=== PATIENT | female | born 1975 | race Caucasian/White ===

== ENCOUNTER → 2020-08-04 09:43 | Outpatient (BNVA) | payer MEDICAID, SELFPAY | PROVIDERS: Family Provider Family Medicine; Visit Provider Emergency Medicine | DX: M25.511 Pain in right shoulder (principal) | CPT/HCPCS: 73030 ==

== ENCOUNTER 2021-04-14 06:39 | Outpatient (CLI) | payer MEDICAID, SELFPAY ==
--- NOTE | 2021-04-14 07:15 | USCV_ITS ---
Adams Olivia Age: 45 Gender: F : 1975 Exam Date: 04/14/2021 07:29 Ordering Phys: Alida Garza MD ([email or web address]) Technologist: Daisha Curtis [place] [facility] [place]: Shortness of breath BP: / HR: Rhythm: Sinus Technical Quality: Adequate MEASUREMENTS (Male / Female) Normal Values 2D ECHO LV Diastolic Diameter PLAX 3.4 cm 4.2 - 5.9 / 3.9 - 5.3 cm LV Systolic Diameter PLAX 2.5 cm LV Chamber Size 2.6 cm IVS Diastolic Thickness 1.0 cm 0.6 - 1.0 / 0.6 - 0.9 cm IVS Systolic Thickness 1.4 cm LVPW Diastolic Thickness 1.1 cm 0.6 - 1.0 / 0.6 - 0.9 cm LVPW Systolic Thickness 1.3 cm RV Chamber Size 2.6 cm LVOT Diameter 2.0 cm LV Ejection Fraction 2D Teich 54.6 % LV Ejection Fraction MOD 2C 54.2 % LV Ejection Fraction 2C AL 57.0 % LA Diameter 3.2 cm LA Width 3.0 cm LA Height 3.4 cm RA Width 3.1 cm RA Height 2.1 cm Aorta at Sinotubular Diameter 2.6 cm M-MODE LV Diastolic Diameter MM 3.1 cm 4.2 - 5.9 / 3.9 - 5.3 cm LV Systolic Diameter MM 1.9 cm LV Ejection Fraction MM Teich 69.2 % IVS Diastolic Thickness MM 1.3 cm 0.6 - 1.0 / 0.6 - 0.9 cm IVS Systolic Thickness MM 1.1 cm LVPW Diastolic Thickness MM 1.0 cm 0.6 - 1.0 / 0.6 - 0.9 cm LVPW Systolic Thickness MM 1.4 cm RV Diastolic Diameter MM 1.1 cm Aortic Annulus Diameter 2.8 cm LA Ao Ratio MM 1.2 MV E Point Septal Separation 0.3 cm DOPPLER AV Peak Velocity 104.0 cm/s LVOT Peak Velocity 110.0 cm/s AV Area Cont Eq vti 3.2 cm squared AV Area Cont Eq pk 3.5 cm squared MV Area PHT 4.0 cm squared Mitral E to A Ratio 1.6 MV E' Velocity 58.0 cm/s Mitral E to MV E' Ratio 8.3 Mitral E to LV E' Lateral Ratio 8.5 Mitral E to LV E' Septal Ratio 8.2 TR Peak Velocity 155.0 cm/s TR Peak Gradient 9.6 mmHg TR Mean Velocity 116.8 cm/s TR Mean Gradient 6.2 mmHg TR Velocity Time Integral 52.8 cm Right Atrial Pressure 3.0 mmHg Pulmonary Artery Systolic Pressu 12.6 mmHg PV Peak Velocity 40.0 cm/s RV Acceleration Time 0.2 s RV Ejection Time 0.4 s RV AcT/ET 0.5 FINDINGS Left Ventricle Normal left ventricular size, systolic function and wall thickness, with no regional wall motion abnormalities. Left ventricular ejection fraction is estimated at 65 %. Normal diastolic function. Right Ventricle Normal right ventricular size and systolic function. Right ventricular systolic pressure 12.6 mmHg. Right Atrium Normal right atrial size. Left Atrium Normal left atrial size. Mitral Valve Structurally normal mitral valve. No mitral valve stenosis. Trace mitral valve regurgitation. Aortic Valve Structurally normal trileaflet aortic valve. No aortic valve stenosis. No aortic valve regurgitation. Tricuspid Valve Structurally normal tricuspid valve. No tricuspid valve stenosis. Trace tricuspid valve regurgitation. Pulmonic Valve Pulmonic valve not well visualized. Trace pulmonary valve regurgitation. Pericardium No pericardial effusion. Aorta Normal size aortic root. Normal sized inferior vena cava. CONCLUSIONS 1. Normal left ventricular size, systolic function and wall thickness, with no regional wall motion abnormalities. Left ventricular ejection fraction is estimated at 65 %. Normal diastolic function. 2. Normal right ventricular size and systolic function. 3. No significant valvular abnormality. 4. Normal pulmonary artery pressure. 5. No prior similar studies to compare. Alida Garza MD (Electronically Signed) Final Date: 15 Apr 2021 20:59 S
[2021-04-14] MEDS: perflutren protein-a microsphr 0.22 mg/mL SDV 3 mL IV (07:56)
== END 2021-04-14 06:40 | disposition home or self-care (01) ==
PROVIDERS: PCP Physician Assistant Medical; Visit Provider Internal Medicine Cardiovascular Disease
DX: I10 Essential (primary) hypertension (principal); R06.02 Shortness of breath
CPT/HCPCS: C8929; Q9956

== ENCOUNTER 2021-07-10 13:21 | Emergency (ER) | payer MEDICAID, SELFPAY ==
[2021-07-10 13:31] VITALS: BP 133/81; PULSE 56; RESP 19; TEMP 36.7; O2SAT 100
--- NOTE | 2021-07-10 13:47 | W.ED.FEMALGU ---
HPI - Female Genitourinary General: Chief complaint: Urogenital-Female Stated complaint: R FLANK PAIN, BLACKED OUT EARLIER Time Seen by Provider: 07/10/21 13:46 History of Present Illness: HPI Narrative: Mr. Adams is a 45-year-old lady with significant past medical story of renal artery stenosis who presents to the emergency department due to flank pain and syncope. She reports her symptoms started subacutely 2 or 3 days ago. She initially noted episodic cramping sharp left flank pain with mild radiation. She denies associated dysuria or hematuria. She has noted associated weight gain and decreased urine output. Today she had sudden onset severe pain in her back that caused her to syncopized. She was sitting in a car and did not fall or hit her head. She has associated generalized malaise, diarrhea, nausea without vomiting. Overall the intensity of symptoms has worsened. The intensity is now severe. She denies similar episodes in the past. Prior abdominal surgeries include hysterectomy with single oophorectomy. No other specific changes health, exacerbating, or alleviating factors identified. Review of Systems General: Reports: 10 or more systems reviewed and unremarkable except in HPI and below Narrative: CONSTITUTIONAL: denies fever, fatigue, weakness EYES - denies pain, denies loss of vision EARS - denies ear issues. NOSE - denies congestion or rhinorrhea. CARDIOVASCULAR - denies chest pain and palpitations RESPIRATORY - denies shortness of breath and cough GASTROINTESTINAL -see HPI GENITOURINARY - denies dysuria or urinary frequency. Subjectively decreased urine output MUSCULOSKELETAL- denies deformity or pain SKIN - denies rashes or new changed skin lesions NEUROLOGIC - denies focal weakness or sensory changes. Syncope as noted in HPI HEMATOLOGIC/LYMPHATIC - denies easy bruising or lymphadenopathy. [facility] PFSH: Medical History History of shingles HTN (hypertension) Migraine headache Surgical History H/O section H/O knee surgery H/O shoulder surgery H/O: hysterectomy S/P cholecystectomy Family History Grandfather Diabetes Grandmother Diabetes Mother Hypoglycemia Other CHF (congestive heart failure) COPD (chronic obstructive pulmonary disease) Hypertension Denies family history of Cancer Social History Smoking and tobacco status: former smoker Quit status (tobacco): has quit using tobacco Year quit tobacco: 2019 Alcohol intake: never History of recent travel: No Current gender identity: Female Female Reproductive History: Spontaneous abortions: No Physical Exam Narrative: EXAM NARRATIVE: GENERAL/CONSTITUTIONAL - well-appearing. Intermittent uncomfortable appearance due to pain Eyes - PERRL, no conjunctival injection ENMT - Atraumatic external nose and ears. Moist mucous membranes NECK - supple. trachea midline CARDIOVASCULAR - regular rate and rhythm. RESPIRATORY -clear to auscultation bilaterally. No retractions or accessory muscle use. ABDOMEN/GI -generalized tenderness to palpation which is mild to moderate. There is tenderness in the epigastric region MSK - Extremities without obvious deformity or tenderness to palpation SKIN - Warm, Dry NEURO - alert and appropriately oriented. strength and sensation intact. Moves all extremities equally. No cranial nerve deficits as examined PSYCH - Appropriate mood and affect Course ED course: - Patient was seen and evaluated by me at bedside - Patient placed on cardiac monitors, IV access obtained - Initial evaluation notable for nontoxic appearance. Pain. No peritonitis on abdominal exam -Symptom treatment ordered - Labs notable for elevated lipase, no evidence of urinary tract infection - Imaging notable for no specific abnormality to explain the patient's symptoms -Patient denies history of alcohol abuse or recent alcohol use - Upon serial reexamination after treatment the patient was improved with symptomatic cares - Based on patient history, evaluation, labs, and imaging as interpreted the most likely cause of the patient's condition is unclear, this is a somewhat atypical presentation for pancreatitis however referred pain could explain the patient's symptoms. I offered admission for symptomatic management. The patient declined admission and wishes trial of symptom control at home. - The results of ED evaluation were discussed with the patient including prescriptions and/or symptomatic cares including appropriate and responsible use, followup plan, and return precautions. The patient verbalized understanding and felt safe for discharge. - Patient discharged in satisfactory condition. Vital Signs: Vital signs: Vital Signs Temperature 98.0 F 07/10/21 13:31 Pulse Rate 82 07/10/21 18:33 Respiratory Rate 16 07/10/21 18:33 Blood Pressure 131/88 07/10/21 18:33 Pulse Oximetry 97 07/10/21 18:33 MDM - Female Medical Records: Attestation: I reviewed the patient's medical records. Lab Data: Attestation: I reviewed the patient's lab results. Labs: Lab Results 07/10/21 07/10/21 07/10/21 Range/Units 14:23 14:23 14:23 WBC 8.8 (4.0-10.0) 10^3/ uL RBC 4.01 L (4.1-5.3) 10^6/u L Hgb 12.5 (11.5-15.3) g/dL Hct 38.5 (37.0-47.0) % MCV 96.0 (81-99) fl MCH 31.2 (28.0-34.0) pg MCHC 32.5 (30.0-36.0) g/dL RDW 12.9 (12.1-15.1) % Plt Count 312 (130-400) 10^3/c mm MPV 11.0 H (7.4-10.4) fL Neut % (Auto) 63.8 % Lymph % (Auto) 26.1 % Bennett % (Auto) 5.3 % Eos % (Auto) 3.6 % Baso % (Auto) 0.9 % Neut # (Auto) 5.60 (1.8-7.7) 10^3/u L Lymph # (Auto) 2.3 (0.8-4.8) 10^3/u L Bennett # (Auto) 0.5 (0.2-0.9) 10^3/u L Eos # (Auto) 0.3 (0.0-0.8) 10^3/u L Baso # (Auto) 0.1 (0.0-0.1) 10^3/u L Nucleated RBC % (a uto) 0 % Nucleated RBCs # 0.0 /100WBC Sodium 131 L (136-145) mmol/L Potassium 4.2 (3.5-5.1) mmol/L Chloride 97 L (98-107) mmol/L Carbon Dioxide 22 (22-29) mmol/L Anion Gap 16.2 (5-19) BUN 11 (6-20) mg/dL Creatinine 0.6 (0.5-0.9) mg/dL GFR Calculation 107.6 (90-130) mL/min Glucose 82 (65-115) mg/dL Calculated Osmolal ity 270 L (285-295) mOsm/k g Lactate 0.7 (0.5-2.2) mmol/L Calcium 9.0 (8.5-10.5) mg/dL Total Bilirubin 0.2 (0.15-1.2) mg/dL AST 38 H (0-32) U/L ALT 40 H (0-33) U/L Alkaline Phosphata se 57 (35-105) IU/L Total Protein 6.8 (6.6-8.7) g/dL Albumin 3.8 (3.5-5.2) g/dL Globulin 3.0 (1.3-4.6) g/dL Lipase 1134 H (13-60) U/L TSH 2.42 (0.27-4.20) uIU/ mL HCG, Qual (Negative) Urine Color (Yellow) Urine Appearance (CLEAR) Urine pH (5-7) Ur Specific Gravit y (1.005-1.030) Urine Protein (Negative) Urine Glucose (UA) (Normal) Urine Ketones (Negative) Urine Blood (Negative) Urine Nitrate (Negative) Urine Bilirubin (Negative) Urine Urobilinogen (Negative) mg/dL Ur Leukocyte Danielle ase (Negative) 07/10/21 07/10/21 Range/Units 14:23 14:23 WBC (4.0-10.0) 10^3/ uL RBC (4.1-5.3) 10^6/u L Hgb (11.5-15.3) g/dL Hct (37.0-47.0) % MCV (81-99) fl MCH (28.0-34.0) pg MCHC (30.0-36.0) g/dL RDW (12.1-15.1) % Plt Count (130-400) 10^3/c mm MPV (7.4-10.4) fL Neut % (Auto) % Lymph % (Auto) % Bennett % (Auto) % Eos % (Auto) % Baso % (Auto) % Neut # (Auto) (1.8-7.7) 10^3/u L Lymph # (Auto) (0.8-4.8) 10^3/u L Bennett # (Auto) (0.2-0.9) 10^3/u L Eos # (Auto) (0.0-0.8) 10^3/u L Baso # (Auto) (0.0-0.1) 10^3/u L Nucleated RBC % (a uto) % Nucleated RBCs # /100WBC Sodium (136-145) mmol/L Potassium (3.5-5.1) mmol/L Chloride (98-107) mmol/L Carbon Dioxide (22-29) mmol/L Anion Gap (5-19) BUN (6-20) mg/dL Creatinine (0.5-0.9) mg/dL GFR Calculation (90-130) mL/min Glucose (65-115) mg/dL Calculated Osmolal ity (285-295) mOsm/k g Lactate (0.5-2.2) mmol/L Calcium (8.5-10.5) mg/dL Total Bilirubin (0.15-1.2) mg/dL AST (0-32) U/L ALT (0-33) U/L Alkaline Phosphata se (35-105) IU/L Total Protein (6.6-8.7) g/dL Albumin (3.5-5.2) g/dL Globulin (1.3-4.6) g/dL Lipase (13-60) U/L TSH (0.27-4.20) uIU/ mL HCG, Qual Negative (Negative) Urine Color Yellow (Yellow) Urine Appearance Clear (CLEAR) Urine pH 6 (5-7) Ur Specific Gravit y 1.010 (1.005-1.030) Urine Protein Neg (Negative) Urine Glucose (UA) Norm (Normal) Urine Ketones Negative (Negative) Urine Blood Neg (Negative) Urine Nitrate Negative (Negative) Urine Bilirubin Neg (Negative) Urine Urobilinogen Neg (Negative) mg/dL Ur Leukocyte Danielle ase Negative (Negative) Discharge Plan Discharge Patient Disposition: Home Clinical Impression: Abdominal pain, Syncope, Elevated AST (SGOT), Elevated alanine aminotransferase (ALT) level, Elevated lipase, Acute pancreatitis Condition: Stable Prescriptions: New oxycodone 5 mg capsule 5 mg PO Q4H PRN (Reason: pain) Qty: 14 RF: 0 Zofran 4 mg tablet 4 mg PO Q8H PRN (Reason: nausea and vomiting) 5 Days RF: 0 No Action amlodipine 10 mg tablet 10 mg PO QAM RF: 0 pantoprazole [Protonix] 40 mg tablet,delayed release (DR/EC) 40 mg PO BID RF: 0 atorvastatin 40 mg tablet 40 mg PO BEDTIME RF: 0 vitamin B complex [Super B-50 Complex] Capsule 1 cap PO QAM RF: 0 cholecalciferol (vitamin D3) 125 mcg (5,000 unit) tablet 125 mcg PO QAM RF: 0 losartan 50 mg tablet 50 mg PO QAM RF: 0 Aimovig Autoinjector See Rx Instructions .ROUTE .COMPLEX RF: 0 Tylenol Extra Strength 500 mg Tablet 1,000 mg PO Q4H PRN (Reason: Pain) RF: 0 L-Glutamine 500 mg Tablet 500 mg PO QAM RF: 0 spironolactone 50 mg Tablet 50 mg PO QAM RF: 0 propranolol 80 mg tablet See Rx Instructions .ROUTE .COMPLEX RF: 0 Discharge Orders: Discharge ED (Routine); Ordered 07/10/21 Ordered By: Donaldo Kumar Referrals: Tunde Vargas [Primary Care Provider] - Discharge Diet: Clear Liquid Discharge Activity: Limit activity as instructed Patient Instructions: Pancreatitis (ED), Abdominal Pain (ED), Opioid Safety Activity Restrictions/Additional Instructions: Thank you for visiting the emergency department. You were seen and evaluated for abdominal pain and syncope, the exact cause of your symptoms is unclear. You were found to have an elevated lipase and in combination with clinical exam is consistent with pancreatitis that the cause of this is unclear. Please follow the instructions and discussions regarding care of your symptoms. Please follow-up in the next few days with your primary care provider. Please return to the emergency department for worsening of your current symptoms, intractable pain, inability to tolerate oral intake, or anything else that you are concerned about and feel needs emergency department evaluation. Coding Level of Care Code ED Special Delivery Carrier for Jen Manning
[2021-07-10] MEDS: sodium chloride 0.9% 1,000 ML 999 ML IV (14:23)
[2021-07-10] MEDS: ketorolac 30 mg/mL INJ 15 MG IVP (14:24)
[2021-07-10] MEDS: ondansetron 2 mg/ML SDV 2 mL 4 MG IVP (14:24)
[2021-07-10] MEDS: morphine 4 mg/mL SDV 1 mL IVP ×2 (14:25→16:42)
[2021-07-10 14:26] VITALS: BP 115/69; PULSE 56; RESP 16; O2SAT 99
[2021-07-10 14:36] LABS: Add Urine Microscopic? NO; Charge for UA Resulting for Rev
[2021-07-10 14:43] LABS: Basophils # 0.1 10^3/uL (0.0-0.1); Basophils % 0.9 %; Eosinophils # 0.3 10^3/uL (0.0-0.8); Eosinophils % 3.6 %; Hematocrit 38.5 % (37.0-47.0); Hemoglobin 12.5 g/dL (11.5-15.3); Lymphocytes # 2.3 10^3/uL (0.8-4.8); Lymphocytes % 26.1 %; Mean Corpuscular HGB Conc 32.5 g/dL (30.0-36.0); Mean Corpuscular Hemoglobin 31.2 pg (28.0-34.0); Monocytes # 0.5 10^3/uL (0.2-0.9); Monocytes % 5.3 %; Neutrophils % 63.8 %; Nucleated Red Blood Cells % 0 %; Platelet Count 312 10^3/cmm (130-400); Red Blood Count 4.01 10^6/uL (4.1-5.3); Red Cell Distribution Width 12.9 % (12.1-15.1); White Blood Count 8.8 10^3/uL (4.0-10.0)
[2021-07-10 15:01] LABS: Bilirubin Urine Neg (Negative); Blood Urine Neg (Negative); Glucose Urine UA Norm (Normal); HCG Qualitative Urine. Negative (Negative); Ketones Urine Negative (Negative); Leukocyte Esterase Urine Negative (Negative); Nitrate Urine Negative (Negative); Protein Urine Neg (Negative); Urine Appearance Clear (CLEAR); Urine Color Yellow (Yellow); Urobilinogen Urine Neg (Negative); pH Urine 6 (5-7)
[2021-07-10 15:07] LABS: Lactate (Lactic Acid level) 0.7 mmol/L (0.5-2.2)
[2021-07-10 15:19] VITALS: BP 126/83; PULSE 53; RESP 16; O2SAT 98
[2021-07-10 15:19] LABS: Alanine Aminotransferase 40 U/L (0-33); Albumin Level 3.8 g/dL (3.5-5.2); Alkaline Phosphatase 57 IU/L (35-105); Blood Urea Nitrogen 11 mg/dL (6-20); Carbon Dioxide 22 mmol/L (22-29); Chloride 97 mmol/L (98-107); Glomerular Filtration Rate 107.6 mL/min (90-130); Glucose 82 mg/dL (65-115); Osmolality Calculated 270 mOsm/kg (285-295); Sodium 131 mmol/L (136-145); Thyroid Stimulating Hormone 2.42 uIU/mL (0.27-4.20); Total Bilirubin 0.2 mg/dL (0.15-1.2); Total Protein 6.8 g/dL (6.6-8.7)
[2021-07-10 15:28] LABS: Anion Gap 16.2 (5-19); Aspartate Amino Transferase 38 U/L (0-32); Lipase 1134 U/L (13-60); Potassium 4.2 mmol/L (3.5-5.1)
--- NOTE | 2021-07-10 15:40 | XR_ITS ---
WS: [id number] Portable AP upright chest, 07/10/2021 Clinical Data: syncope Comparison: None. Findings: No nodules, masses or effusions are seen. The heart is normal. The pulmonary vascularity is not increased. No pneumonia or pneumothorax is seen. XR/XR chest 1V portable [id number] Impression: Negative chest.
--- NOTE | 2021-07-10 15:40 | CTR_ITS ---
PROCEDURE INFORMATION: Exam: CT Abdomen And Pelvis With Contrast Exam date and time: 07/10/2021 3:40 PM Age: 45 years old Clinical indication: Abdominal pain; Right; Prior surgery; Surgery type: Gb, hyst; Patient HX: RT flank pain x 2 days; Additional info: Syncope and abdominal pain, elevated lipase TECHNIQUE: Imaging protocol: Computed tomography of the abdomen and pelvis with contrast. Radiation optimization: All CT scans at this facility use at least one of these dose optimization techniques: automated exposure control; mA and/or kV adjustment per patient size (includes targeted exams where dose is matched to clinical indication); or iterative reconstruction. Contrast material: OMNIPAQUE 300; Contrast volume: 95 ml; Contrast route: INTRAVENOUS (IV); COMPARISON: CR XR chest 1V portable [id number] 07/10/2021 3:44 PM RADIATION DOSE METRICS: Total DLP (mGy-cm): 1371.38 FINDINGS: Liver: There is multiple nonspecific hypodense lesions scattered throughout the liver, the largest measuring 1.3 cm in the right hepatic lobe. Gallbladder and bile ducts: The gallbladder has been surgically removed. There is mild intra and extrahepatic biliary ductal dilatation, likely secondary to post cholecystectomy status. Pancreas: Normal. No ductal dilation. Spleen: Normal. No splenomegaly. Adrenal glands: Normal. No mass. Kidneys and ureters: Symmetric enhancement of the kidneys. No hydronephrosis or nephrolithiasis. There is a subcentimeter hypodense lesion in the left lower kidney, which is too small to characterize. Incidental note is made of a 3.3 cm cyst in the left ovary. Stomach and bowel: There is a few fluid-filled loops of small bowel, and scattered air-fluid levels throughout the non abnormally distended colon. No bowel obstruction or focal inflammation identified. Appendix: No evidence of appendicitis. Intraperitoneal space: Unremarkable. No free air. No significant fluid collection. Vasculature: Unremarkable. No abdominal aortic aneurysm. Lymph nodes: Unremarkable. No enlarged lymph nodes. Urinary bladder: Unremarkable as visualized. Reproductive: The uterus is surgically absent. Bones/joints: Unremarkable. No acute fracture. Soft tissues: Unremarkable. CT/CT abdomen pelvis w con* [id number] IMPRESSION: Nonspecific imaging findings, which can be seen the setting of enteritis/colitis. COMMENTS: Consistent with the [employer]'s Incidental Findings Committee white paper (J Am Huma Radiol 2018): Any incidental renal lesion less than 1 cm or classified as too small to characterize, or any incidental cystic renal lesion characterized as simple-appearing, is likely benign. No follow-up imaging is recommended for these lesions per consensus recommendations based on imaging criteria. Radiation Dose CTDIVOL = (mGy): DLP = 1371.38 (mGy-cm)
[2021-07-10] MEDS: iohexol 300 mg/mL 100 mL Btl IV (16:20)
[2021-07-10 16:45] VITALS: BP 128/74; PULSE 65; RESP 16; O2SAT 98
--- NOTE | 2021-07-10 17:41 | PC.PHAR ---
PT STATES SHE TAKES CARE OF HER OWN MEDICATIONS-PT STATES SHE FILLS HER MEDS AT [facility] IN [facility] CALLED TO VERIFY MEDS AND MG THEY ARE CLOSED-PT STATES SHE TAKES THE MEDICATIONS ENTERED NOTES ARE MADE IN THE PHARMACY COMMENTS
[2021-07-10 17:55] VITALS: BP 125/76; PULSE 60; RESP 16; O2SAT 98
[2021-07-10 18:33] VITALS: BP 131/88; PULSE 82; RESP 16; O2SAT 97
== END 2021-07-10 18:35 | disposition home or self-care (01) ==
PROVIDERS: Emergency Provider Emergency Medicine; PCP Physician Assistant Medical
DX: K85.90 Acute pancreatitis without necrosis or infection, unspecified (principal); R55 Syncope and collapse; R74.01 Elevation of levels of liver transaminase levels; R79.89 Other specified abnormal findings of blood chemistry; I10 Essential (primary) hypertension; Z87.891 Personal history of nicotine dependence
CPT/HCPCS: 71045; 74177; 80053; 81003; 81025; 83605; 83690; 84443; 85025; 96361; 96374; 96375; 96376; 99284; J1885; J2270; J2405; J7030; Q9967

== ENCOUNTER 2021-07-13 15:03 | Observation (INO) | payer MEDICAID, SELFPAY ==
[2021-07-13] VITALS (7 sets, daily range): BP systolic 114–136; BP diastolic 71–91; PULSE 58–95; RESP 16–18; TEMP 36.3–36.7; O2SAT 96–98; BMI 25.6; BMI 28.5
--- NOTE | 2021-07-13 15:43 | ED_ITS ---
Documented by User: [facility] 07/14/21 19:59 HPI - Abdominal Pain General: Chief Complaint: Abdominal Pain Stated Complaint: STOMACH/BACK PAIN WORSENING Time Seen by Provider: 07/13/21 15:15 Source: patient Mode of arrival: ambulatory Limitations: no limitations History of Present Illness: HPI narrative: Patient is a 45-year-old female who presents to ED today with continued and worsening upper abdominal pains. Patient states pain initially began approximately a week ago. She was seen at our facility 3 to 4 days ago. At that visit patient had a lipase of over 1000. She was offered admission but wanted to go home. CT scan did not show any emergent pathology. She is status post cholecystectomy. Patient states since she was discharged pain is continued to worsen and is uncontrollable with oral analgesics that were prescribed. Pain is located to her epigastric region with radiation into her back. She has having nausea without episodes of emesis. Bowel movements have been normal. She is not running fevers. She has not noticed any yellowing to the skin or eyes. Patient denies drug or alcohol use. MD elicited complaint: abdominal pain Onset (ago): day(s) Pain Consistency: constant Location: Epigastric and RUQ Severity: severe Quality: stabbing and sharp Relieving factors: nothing Associated Symptoms: Reports bloating and nausea; Denies change in stool character, chills, diarrhea, dysuria, fever(s), hematochezia, hematuria, melena and vomiting Treatments prior to arrival: prescription analgesics Related Data: Patient : No Review of Systems Const: Reports: change in appetite; Denies: fever(s), chills, body aches, fatigue or malaise ENMT: Denies: throat pain or odynophagia Card: Denies: chest pain Resp: Denies: dyspnea GI: Reports: abdominal pain, nausea and bloating; Denies: vomiting, diarrhea, rectal pain, change in stool character, hematochezia or melena : Denies: flank pain, dysuria or hematuria Musc: Reports: back pain; Denies: neck pain, extremity pain, extremity swelling, joint pain or joint swelling Skin/Breast: Denies: rash Neuro: Denies: headache(s), numbness in extremities, weakness in extremities or sensory changes PFS ED PFSH: Medical History (Updated 07/14/21 @ 17:24 by Vitor Sorensen MD) 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 GERD (gastroesophageal reflux disease) History of peptic ulcer disease History of shingles 3 times HTN (hypertension) Hyperlipidemia Migraine headache Renal artery stenosis Surgical History (Updated 07/14/21 @ 15:05 by Andreas Crawford MD) H/O section x 1 H/O knee surgery Right arthroscopy x 4 H/O shoulder surgery Right biceps tendon tear repair H/O: hysterectomy / Right oophorectomy History of colonoscopy 2019 -- normal History of esophagogastroduodenoscopy (EGD) 2019 -- ulcers S/P cholecystectomy Family History Grandfather Diabetes Grandmother Diabetes Mother Hypoglycemia Other CHF (congestive heart failure) COPD (chronic obstructive pulmonary disease) Hypertension Denies family history of Cancer Social History (Updated 07/14/21 @ 15:08 by Andreas Crawford MD) Smoking and tobacco status: former smoker Quit status (tobacco): has quit using tobacco Year quit tobacco: 2019 Former quit date comment: Quit after she was diagnosed with COVID-19 Alcohol intake: never Current gender identity: Female Female Reproductive History: Spontaneous abortions: No Physical Exam Const: COMMON NORMALS: average body habitus, patient oriented x3, no limitations, healthy appearing, alert and well nourished GENERAL APPEARANCE: cooperative and in distress (appears uncomfortable) HENMT: COMMON NORMALS: normocephalic and atraumatic HEAD & SCALP: normocephalic and atraumatic Resp: COMMON NORMALS: normal respiratory effort and clear to auscultation bilaterally AUSCULTATION: clear to auscultation bilaterally Cardio: COMMON NORMALS: regular rate and regular rhythm RATE: regular rate RHYTHM: regular rhythm GI: COMMON NORMALS: Soft to palpation, No hepatosplenomegaly present and no masses INSPECTION: Yes other (abdominal bloating) AUSCULTATION: Yes normoactive bowel sounds PALPATION: Yes Soft to palpation, Yes Tenderness to palpation present (GI) (epigastric, RUQ), Yes Guarding due to palpation present (GI) and Yes No hepatosplenomegaly present : BLADDER/KIDNEY EXAM: Yes CVA tenderness Back/Pelvis: COMMON NORMALS: thoracic and lumbar spine normal to inspection, no thoracic nor lumbar tenderness and thoraco-lumbar ROM normal GENERAL BACK: Yes CVA tenderness CVA tenderness: bilateral Extremity: COMMON NORMALS: normal to inspection Neuro: COMMON NORMALS: patient oriented x3 SENSORIUM/ORIENTATION: Yes alert Skin: COMMON NORMALS: no rashes or lesions noted GENERAL SKIN EXAM: no rashes or lesions noted Course Vital Signs: Vital signs: Vital Signs Temperature 97.9 F 07/15/21 08:00 Pulse Rate 68 07/15/21 08:00 Respiratory Rate 18 07/15/21 08:43 Blood Pressure 134/84 07/15/21 08:00 Pulse Oximetry 98 07/15/21 08:00 MDM - Abdominal Pain MDM Narrative: Medical decision making narrative: Patient here for worsening upper abdominal pains. Just 2 days ago she had a lipase of over 1100 and today her lipase is 29 which clinically is perplexing. We will repeat her lipase to verify. Care be transferred to Dr. Kumar as my shift is ending and he cared for her 2 days ago. Plan will most likely be for admission into the hospital as patient has failed outpatient treatment. Lab Data: Labs: Lab Results 07/13/21 07/13/21 07/13/21 Range/Units 16:00 16:00 16:20 WBC 7.2 (4.0-10.0) 10^3/ uL RBC 4.07 L (4.1-5.3) 10^6/u L Hgb 12.6 (11.5-15.3) g/dL Hct 37.9 (37.0-47.0) % MCV 93.1 (81-99) fl MCH 31.0 (28.0-34.0) pg MCHC 33.2 (30.0-36.0) g/dL RDW 12.1 (12.1-15.1) % Plt Count 329 (130-400) 10^3/c mm MPV 10.5 H (7.4-10.4) fL Neut % (Auto) 56.3 % Lymph % (Auto) 30.3 % George % (Auto) 8.2 % Eos % (Auto) 4.3 % Baso % (Auto) 0.6 % Neut # (Auto) 4.07 (1.8-7.7) 10^3/u L Lymph # (Auto) 2.2 (0.8-4.8) 10^3/u L George # (Auto) 0.6 (0.2-0.9) 10^3/u L Eos # (Auto) 0.3 (0.0-0.8) 10^3/u L Baso # (Auto) 0.0 (0.0-0.1) 10^3/u L Nucleated RBC % (a uto) 0 % Nucleated RBCs # 0.0 /100WBC Sodium 136 (136-145) mmol/L Potassium 4.4 (3.5-5.1) mmol/L Chloride 100 (98-107) mmol/L Carbon Dioxide 29 (22-29) mmol/L Anion Gap 11.4 (5-19) BUN 8 (6-20) mg/dL Creatinine 0.8 (0.5-0.9) mg/dL GFR Calculation 77.2 L (90-130) mL/min Glucose 85 (65-115) mg/dL Calculated Osmolal ity 280 L (285-295) mOsm/k g Calcium 9.3 (8.5-10.5) mg/dL Total Bilirubin 0.3 (0.15-1.2) mg/dL AST 32 (0-32) U/L ALT 45 H (0-33) U/L Alkaline Phosphata se 72 (35-105) IU/L Total Protein 6.9 (6.6-8.7) g/dL Albumin 4.3 (3.5-5.2) g/dL Globulin 2.6 (1.3-4.6) g/dL Lipase 29 (13-60) U/L HCG, Qual Negative (Negative) Urine Color (Yellow) Urine Appearance (CLEAR) Urine pH (5-7) Ur Specific Gravit y (1.005-1.030) Urine Protein (Negative) Urine Glucose (UA) (Normal) Urine Ketones (Negative) Urine Blood (Negative) Urine Nitrate (Negative) Urine Bilirubin (Negative) Urine Urobilinogen (Negative) mg/dL Ur Leukocyte Danielle ase (Negative) 07/13/21 07/13/21 Range/Units 16:25 18:15 WBC (4.0-10.0) 10^3/ uL RBC (4.1-5.3) 10^6/u L Hgb (11.5-15.3) g/dL Hct (37.0-47.0) % MCV (81-99) fl MCH (28.0-34.0) pg MCHC (30.0-36.0) g/dL RDW (12.1-15.1) % Plt Count (130-400) 10^3/c mm MPV (7.4-10.4) fL Neut % (Auto) % Lymph % (Auto) % George % (Auto) % Eos % (Auto) % Baso % (Auto) % Neut # (Auto) (1.8-7.7) 10^3/u L Lymph # (Auto) (0.8-4.8) 10^3/u L George # (Auto) (0.2-0.9) 10^3/u L Eos # (Auto) (0.0-0.8) 10^3/u L Baso # (Auto) (0.0-0.1) 10^3/u L Nucleated RBC % (a uto) % Nucleated RBCs # /100WBC Sodium (136-145) mmol/L Potassium (3.5-5.1) mmol/L Chloride (98-107) mmol/L Carbon Dioxide (22-29) mmol/L Anion Gap (5-19) BUN (6-20) mg/dL Creatinine (0.5-0.9) mg/dL GFR Calculation (90-130) mL/min Glucose (65-115) mg/dL Calculated Osmolal ity (285-295) mOsm/k g Calcium (8.5-10.5) mg/dL Total Bilirubin (0.15-1.2) mg/dL AST (0-32) U/L ALT (0-33) U/L Alkaline Phosphata se (35-105) IU/L Total Protein (6.6-8.7) g/dL Albumin (3.5-5.2) g/dL Globulin (1.3-4.6) g/dL Lipase 28 (13-60) U/L HCG, Qual (Negative) Urine Color Yellow (Yellow) Urine Appearance Clear (CLEAR) Urine pH 5 (5-7) Ur Specific Gravit y 1.010 (1.005-1.030) Urine Protein Neg (Negative) Urine Glucose (UA) Norm (Normal) Urine Ketones Negative (Negative) Urine Blood Neg (Negative) Urine Nitrate Negative (Negative) Urine Bilirubin Neg (Negative) Urine Urobilinogen Norm (Negative) mg/dL Ur Leukocyte Danielle ase Negative (Negative) Imaging Data ^: CT Abd/Pel: Radiologist's impression: [facility] [place], [place] [address]HQ Scan ReportSigned Patient: Olivia Adams AUnit #: [id number]: 1975Acct#:[id number]/Sex: 45 / FADM Date: 07/13/21Loc: ERRoom/Bed:Attending Dr: Ordering Provider/Ordering MD: Jennifer Colby Date of Service: 07/13/21 Procedure(s): CT abdomen pelvis w con* [id number] Accession Number(s): [id number] Report Number: [id number] PROCEDURE INFORMATION: Exam: CT Abdomen And Pelvis With Contrast Exam date and time: 07/13/2021 3:42 PM Age: 45 years old Clinical indication: Abdominal pain; Localized; Prior surgery; Surgery date: 6+ months; Surgery type: Gb, hyst; Patient HX: C/O worsening upper abd pain; Additional info: Severe upper abdominal pain; Radiates back TECHNIQUE: Imaging protocol: Computed tomography of the abdomen and pelvis with contrast. Radiation optimization: All CT scans at this facility use at least one of these dose optimization techniques: automated exposure control; mA and/or kV adjustment per patient size (includes targeted exams where dose is matched to clinical indication); or iterative reconstruction. Contrast material: OMNI 300; Contrast volume: 95 ml; Contrast route: INTRAVENOUS (IV); COMPARISON: CT abdomen pelvis w con* [id number] 07/10/2021 4:16 PM RADIATION DOSE METRICS: Total DLP (mGy-cm): 1258.67 FINDINGS: Liver: Tiny circumscribed low-attenuation lesions are present throughout the liver. The smallest lesions are too small to characterize. Largest lesion in the posterior right hepatic lobe measures 12 mm. Gallbladder and bile ducts: Cholecystectomy. Nondilated biliary system. Pancreas: Normal. No ductal dilation. Spleen: Negative for splenomegaly. Adrenal glands: Normal. No mass. Kidneys and ureters: Normal. No hydronephrosis. No calcified stones. Stomach and bowel: Unremarkable. No obstruction. No mucosal thickening. Appendix: Normal appendix. Intraperitoneal space: Unremarkable. No free air. No significant fluid collection. Vasculature: Vascular structures are patent unremarkable. Heavily calcified very small 8 mm splenic artery aneurysm noted in the splenic hilum. Lymph nodes: Unremarkable. No enlarged lymph nodes. Urinary bladder: Unremarkable as visualized. Reproductive: Hysterectomy. Small circumscribed simple cyst in the left adnexa measures 3.2 cm x 2.6 cm. Bones/joints: Unremarkable. No acute fracture. Soft tissues: There is increased soft tissue density pertaining to the imaged aspect of the vulva of uncertain significance, however this is incompletely characterized. CT/CT abdomen pelvis w con* [id number] IMPRESSION: 1. No acute abdominopelvic pathology is identified. 2. Small cystic left adnexal lesion. No dedicated follow-up recommended secondary to size, appearance, and patient age. 3. Numerous small low-attenuation liver lesions. Suspect numerous small cysts; alternative diagnosis could include biliary hamartomas. Pathology such as micro abscesses considered unlikely. 4. No significant change from comparison. Radiation Dose CTDIVOL = (mGy): DLP = 1258.67 (mGy-cm) Dictated By:Daina Walsh By:Daina Walsh Date/Time:07/13/211647DD/ 45 Discharge Plan Discharge Patient Disposition: Admitted As Inpatient Admit Provider: Olga Anton Sign Out Sign Out Data: Patient Sign Out occurred on 07/13/21 at 17:04. Patient's care was discussed, and care was transferred from to Donaldo Kumar MD. 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 GERD (gastroesophageal reflux disease) History of peptic ulcer disease History of shingles 3 times HTN (hypertension) Hyperlipidemia Migraine headache Renal artery stenosis Surgical History (Updated 07/14/21 @ 15:05 by Andreas Crawford MD) H/O section x 1 H/O knee surgery Right arthroscopy x 4 H/O shoulder surgery Right biceps tendon tear repair H/O: hysterectomy / Right oophorectomy History of colonoscopy 2019 -- normal History of esophagogastroduodenoscopy (EGD) 2019 -- ulcers S/P cholecystectomy Family History Grandfather Diabetes Grandmother Diabetes Mother Hypoglycemia Other CHF (congestive heart failure) COPD (chronic obstructive pulmonary disease) Hypertension Denies family history of Cancer Social History (Updated 07/14/21 @ 15:08 by Andreas Crawford MD) Smoking and tobacco status: former smoker Quit status (tobacco): has quit using tobacco Year quit tobacco: 2019 Former quit date comment: Quit after she was diagnosed with COVID-19 Alcohol intake: never Current gender identity: Female Course Vital Signs: Vital signs: Vital Signs Temperature 97.9 F 07/15/21 08:00 Pulse Rate 68 07/15/21 08:00 Respiratory Rate 18 07/15/21 08:43 Blood Pressure 134/84 07/15/21 08:00 Pulse Oximetry 98 07/15/21 08:00 MDM - Abdominal Pain MDM Narrative: Medical decision making narrative: Patient case discussed with [facility]. Patient handoff received. Given intractable pain patient wi ll be admitted for observation and symptom control. Donaldo Kumar MD Emergency Medicine Lab Data: Labs: Lab Results 07/13/21 07/13/21 07/13/21 Range/Units 16:00 16:00 16:20 WBC 7.2 (4.0-10.0) 10^3/ uL RBC 4.07 L (4.1-5.3) 10^6/u L Hgb 12.6 (11.5-15.3) g/dL Hct 37.9 (37.0-47.0) % MCV 93.1 (81-99) fl MCH 31.0 (28.0-34.0) pg MCHC 33.2 (30.0-36.0) g/dL RDW 12.1 (12.1-15.1) % Plt Count 329 (130-400) 10^3/c mm MPV 10.5 H (7.4-10.4) fL Neut % (Auto) 56.3 % Lymph % (Auto) 30.3 % George % (Auto) 8.2 % Eos % (Auto) 4.3 % Baso % (Auto) 0.6 % Neut # (Auto) 4.07 (1.8-7.7) 10^3/u L Lymph # (Auto) 2.2 (0.8-4.8) 10^3/u L George # (Auto) 0.6 (0.2-0.9) 10^3/u L Eos # (Auto) 0.3 (0.0-0.8) 10^3/u L Baso # (Auto) 0.0 (0.0-0.1) 10^3/u L Nucleated RBC % (a uto) 0 % Nucleated RBCs # 0.0 /100WBC Sodium 136 (136-145) mmol/L Potassium 4.4 (3.5-5.1) mmol/L Chloride 100 (98-107) mmol/L Carbon Dioxide 29 (22-29) mmol/L Anion Gap 11.4 (5-19) BUN 8 (6-20) mg/dL Creatinine 0.8 (0.5-0.9) mg/dL GFR Calculation 77.2 L (90-130) mL/min Glucose 85 (65-115) mg/dL Calculated Osmolal ity 280 L (285-295) mOsm/k g Calcium 9.3 (8.5-10.5) mg/dL Total Bilirubin 0.3 (0.15-1.2) mg/dL AST 32 (0-32) U/L ALT 45 H (0-33) U/L Alkaline Phosphata se 72 (35-105) IU/L Total Protein 6.9 (6.6-8.7) g/dL Albumin 4.3 (3.5-5.2) g/dL Globulin 2.6 (1.3-4.6) g/dL Lipase 29 (13-60) U/L HCG, Qual Negative (Negative) Urine Color (Yellow) Urine Appearance (CLEAR) Urine pH (5-7) Ur Specific Gravit y (1.005-1.030) Urine Protein (Negative) Urine Glucose (UA) (Normal) Urine Ketones (Negative) Urine Blood (Negative) Urine Nitrate (Negative) Urine Bilirubin (Negative) Urine Urobilinogen (Negative) mg/dL Ur Leukocyte Danielle ase (Negative) 07/13/21 07/13/21 Range/Units 16:25 18:15 WBC (4.0-10.0) 10^3/ uL RBC (4.1-5.3) 10^6/u L Hgb (11.5-15.3) g/dL Hct (37.0-47.0) % MCV (81-99) fl MCH (28.0-34.0) pg MCHC (30.0-36.0) g/dL RDW (12.1-15.1) % Plt Count (130-400) 10^3/c mm MPV (7.4-10.4) fL Neut % (Auto) % Lymph % (Auto) % George % (Auto) % Eos % (Auto) % Baso % (Auto) % Neut # (Auto) (1.8-7.7) 10^3/u L Lymph # (Auto) (0.8-4.8) 10^3/u L George # (Auto) (0.2-0.9) 10^3/u L Eos # (Auto) (0.0-0.8) 10^3/u L Baso # (Auto) (0.0-0.1) 10^3/u L Nucleated RBC % (a uto) % Nucleated RBCs # /100WBC Sodium (136-145) mmol/L Potassium (3.5-5.1) mmol/L Chloride (98-107) mmol/L Carbon Dioxide (22-29) mmol/L Anion Gap (5-19) BUN (6-20) mg/dL Creatinine (0.5-0.9) mg/dL GFR Calculation (90-130) mL/min Glucose (65-115) mg/dL Calculated Osmolal ity (285-295) mOsm/k g Calcium (8.5-10.5) mg/dL Total Bilirubin (0.15-1.2) mg/dL AST (0-32) U/L ALT (0-33) U/L Alkaline Phosphata se (35-105) IU/L Total Protein (6.6-8.7) g/dL Albumin (3.5-5.2) g/dL Globulin (1.3-4.6) g/dL Lipase 28 (13-60) U/L HCG, Qual (Negative) Urine Color Yellow (Yellow) Urine Appearance Clear (CLEAR) Urine pH 5 (5-7) Ur Specific Gravit y 1.010 (1.005-1.030) Urine Protein Neg (Negative) Urine Glucose (UA) Norm (Normal) Urine Ketones Negative (Negative) Urine Blood Neg (Negative) Urine Nitrate Negative (Negative) Urine Bilirubin Neg (Negative) Urine Urobilinogen Norm (Negative) mg/dL Ur Leukocyte Danielle ase Negative (Negative) Discharge Plan Discharge Patient Disposition: Admitted As Inpatient Admit Provider: Olga Anton Sign Out Sign Out Data: Patient Sign Out occurred on 07/13/21 at 17:04. Patient's care was discussed, and care was transferred from to Donaldo Kumar MD. Coding Level of Care Code ED Postie for Chg Fwd Exam Comprehensive
[2021-07-13] MEDS: ondansetron 2 mg/ML SDV 2 mL 4 MG IVP (16:20)
[2021-07-13] MEDS: morphine 4 mg/mL SDV 1 mL IVP ×3 (16:20→22:00)
[2021-07-13] MEDS: sodium chloride 0.9% 1,000 ML 999 ML IV (16:20)
[2021-07-13 16:24] LABS: Basophils % 0.6 %; Eosinophils # 0.3 10^3/uL (0.0-0.8); Eosinophils % 4.3 %; Hematocrit 37.9 % (37.0-47.0); Hemoglobin 12.6 g/dL (11.5-15.3); Lymphocytes # 2.2 10^3/uL (0.8-4.8); Lymphocytes % 30.3 %; Mean Corpuscular HGB Conc 33.2 g/dL (30.0-36.0); Mean Corpuscular Volume 93.1 fl (81-99); Mean Platelet Volume 10.5 fL (7.4-10.4); Monocytes # 0.6 10^3/uL (0.2-0.9); Monocytes % 8.2 %; Neutrophils # 4.07 10^3/uL (1.8-7.7); Neutrophils % 56.3 %; Nucleated Red Blood Cells % 0 %; Platelet Count 329 10^3/cmm (130-400); Red Blood Count 4.07 10^6/uL (4.1-5.3); Red Cell Distribution Width 12.1 % (12.1-15.1); White Blood Count 7.2 10^3/uL (4.0-10.0)
[2021-07-13] MEDS: iohexol 300 mg/mL 100 mL Btl IV (16:25)
[2021-07-13 16:44] LABS: HCG, Serum Qual Negative (Negative)
[2021-07-13 16:48] LABS: Alanine Aminotransferase 45 U/L (0-33); Albumin Level 4.3 g/dL (3.5-5.2); Alkaline Phosphatase 72 IU/L (35-105); Blood Urea Nitrogen 8 mg/dL (6-20); Calcium 9.3 mg/dL (8.5-10.5); Carbon Dioxide 29 mmol/L (22-29); Chloride 100 mmol/L (98-107); Globulin 2.6 g/dL (1.3-4.6); Glomerular Filtration Rate 77.2 mL/min (90-130); Glucose 85 mg/dL (65-115); Lipase 29 U/L (13-60); Osmolality Calculated 280 mOsm/kg (285-295); Sodium 136 mmol/L (136-145); Total Bilirubin 0.3 mg/dL (0.15-1.2); Total Protein 6.9 g/dL (6.6-8.7)
[2021-07-13 16:51] LABS: Anion Gap 11.4 (5-19); Potassium 4.4 mmol/L (3.5-5.1)
[2021-07-13 16:52] LABS: Aspartate Amino Transferase 32 U/L (0-32)
[2021-07-13 17:10] LABS: Add Urine Microscopic? NO; Charge for UA Resulting for Rev
[2021-07-13 17:23] LABS: Bilirubin Urine Neg (Negative); Blood Urine Neg (Negative); Glucose Urine UA Norm (Normal); Ketones Urine Negative (Negative); Leukocyte Esterase Urine Negative (Negative); Nitrate Urine Negative (Negative); Protein Urine Neg (Negative); Urine Appearance Clear (CLEAR); Urine Color Yellow (Yellow); Urobilinogen Urine Norm (Negative); pH Urine 5 (5-7)
[2021-07-13] MEDS: lidocaine 2% viscous 15 ML, aluminum-mag hydrox-simethicon 30 ML, sucralfate oral liq 1 GM PO (18:20)
[2021-07-13 19:00] LABS: Lipase 28 U/L (13-60)
[2021-07-13] MEDS: cefTRIAXone 1,000 MG in sodium chloride 0.9% (plus) 50 ML 100 MG IV (19:07)
[2021-07-13] MEDS: metroNIDAZOLE IV 500 MG/100 ML PREMIX 100 MG IV (19:38)
--- NOTE | 2021-07-13 20:11 | PC.NURSE ---
Brayden tried to call report and no answer on the unit 2012 report called to [facility]
[2021-07-14] VITALS (13 sets, daily range): BP systolic 105–121; BP diastolic 69–83; PULSE 51–81; RESP 16–19; TEMP 36.5–36.9; O2SAT 94–99
--- NOTE | 2021-07-14 00:20 | P.HP_ITS ---
Providers/Chief Complaint Admitting Physician: Olga Anton MD Primary Care Provider: Tunde Vargas Chief Complaint: STOMACH/BACK PAIN WORSENING History of Present Illness Olivia Adams is a 45 year old female who presented to the emergency room with increasing abdominal pain. She was seen a few days ago. At that time laboratory studies showed a lipase that was elevated [place] 1134. CT imaging did not show any abnormalities in the pancreas. There were some nonspecific findings in the small bowel with a few fluid-filled loops and scattered air- fluid levels but bowels were not distended and no evidence of any obstructive process or inflammation identified. She received prescriptions for pain medications and nausea medicine and was discharged home. She states that the pain medication helps for an hour or so but is not sustaining relief. The nausea medicine does help with nausea that has been also present. Pain is located in the epigastric region and radiates into the right, goes through to her back. Pain is severe. It seems to be worse after eating. She has had a lot of bloating. She is felt nauseated but not had any vomiting. She does have a history of peptic ulcer disease. This pain is a little bit different. She is also had cholecystectomy. Only new medication is Aimovig which she started about 2 months ago for migraines. It is not known to be associated with pancreatitis but can be associated with cramping and constipation. Mrs. Adams bowel movements are about what her baseline is. She has chronic issues with constipation. Does not report being more constipated than usual currently. No report of any fevers. She did have Covid back in October of last year. She has had long-haul symptoms with significant fatigue, long-term loss of taste and smell which has started to recently return among other symptoms. She received her first dose of Materna vaccine on July 03. In the emergency room today she required multiple doses of pain medication. Repeat CT imaging showed a small cystic left adnexal lesion, numerous small low-attenuation liver lesions which were no significant change from prior. 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 Vascular structures were otherwise noted as unremarkable, patent. Again the pancreas was noted to be normal with no ductal dilatation. With the persistent pain requiring multiple medications, elevated lipase to greater than 1000 2 days ago patient is being admitted for observation and further evaluation as indicated. Review of Systems Const: Reports: change in appetite; Denies: fever(s), chills or change in weight ENMT: Reports: post nasal drip (Related to sinuses); Denies: throat pain Card: Denies: chest pain, palpitations or edema Resp: Denies: dyspnea, productive cough or non-productive cough GI: Reports: abdominal pain, nausea, heartburn, constipation and bloating; Denies: vomiting, diarrhea, hematochezia or melena : Denies: difficulty voiding or hematuria Skin/Breast: Reports: breast tenderness (New finding lately); Denies: rash or sores Neuro: Reports: headache(s) (Chronic migraines currently controlled) and other (Some numbness in the skin over her lower sternal epigastric area at times w); Denies: numbness in extremities, weakness in extremities or difficulty walking Psych: Denies: anxiety or depression John/Lymph: Denies: easy bruising or easy bleeding Medications/Allergies Home Medications Medication Instructions Recorded Confirmed Last Taken Type amlodipine 10 mg tablet 10 mg PO QAM 12/28/20 07/10/21 07/10/21 06:00 History atorvastatin 40 mg tablet 40 mg PO BEDTIME 02/03/21 07/10/21 07/09/21 History cholecalciferol (vitamin D3) 125 125 mcg PO QAM 02/03/21 07/10/21 07/10/21 History mcg (5,000 unit) tablet losartan 50 mg tablet 50 mg PO QAM 02/03/21 07/10/21 07/10/21 History pantoprazole 40 mg tablet,delayed 40 mg PO BID tab 02/03/21 07/10/21 07/10/21 06:00 History release vitamin B complex 1 cap PO QAM 02/03/21 07/10/21 07/10/21 06:00 History Aimovig Autoinjector See Rx Instructions .ROUTE .COMPLEX 07/10/21 07/10/21 Unknown History acetaminophen [Tylenol Extra 1,000 mg PO Q4H PRN 07/10/21 07/10/21 07/10/21 07:30 History Strength] glutamine [L-Glutamine] 500 mg PO QAM 07/10/21 07/10/21 07/10/21 History ondansetron HCl [Zofran] 4 mg PO Q8H PRN 5 Days tab 07/10/21 Unknown Rx oxycodone 5 mg PO Q4H PRN #14 cap 07/10/21 Unknown Rx propranolol See Rx Instructions .ROUTE .COMPLEX 07/10/21 07/10/21 07/10/21 06:00 History 80 MG spironolactone 50 mg PO QAM 07/10/21 07/10/21 07/10/21 History Allergies Allergy/AdvReac Type Severity Reaction Status Date / Time No Known Allergies Allergy Verified 07/13/21 15:11 PFSH Acute PFSH: Medical History (Updated 07/14/21 @ 06:37 by Olga Anton MD) 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 GERD (gastroesophageal reflux disease) History of peptic ulcer disease History of shingles 3 times HTN (hypertension) Hyperlipidemia Migraine headache Renal artery stenosis Surgical History (Updated 07/14/21 @ 06:37 by Olga Anton MD) H/O section H/O knee surgery H/O shoulder surgery H/O: hysterectomy History of colonoscopy History of esophagogastroduodenoscopy (EGD) S/P cholecystectomy Family History Grandfather Diabetes Grandmother Diabetes Mother Hypoglycemia Other CHF (congestive heart failure) COPD (chronic obstructive pulmonary disease) Hypertension Denies family history of Cancer Social History (Updated 07/14/21 @ 01:02 by Olga Anton MD) Smoking and tobacco status: former smoker Quit status (tobacco): has quit using tobacco Year quit tobacco: 2019 Alcohol intake: never Current gender identity: Female Female Reproductive History: Spontaneous abortions: No Vitals/I&O/Wt Last Vital Signs Temp 97.9 F 07/13/21 23:54 Pulse 58 L 07/13/21 23:54 Resp 18 07/13/21 23:54 BP 114/71 07/13/21 23:54 Pulse Ox 97 07/13/21 23:54 07/13/21 07/13/21 07/14/21 14:59 22:59 06:59 Intake Total 1150 / 1150 Balance 1150 / 1150 Weight last 48 hrs Weight 70.931 kg Weight 63.503 kg Physical Exam Narrative: EXAM NARRATIVE: Constitutional: Awake and alert, cooperative HEENT: Normocephalic, atraumatic, pupils reactive, moist mucous membranes Respiratory: Clear to auscultation bilaterally Cardiovascular: Regular rate and rhythm Abdomen: Soft, nondistended, tender in epigastric region, left lower quadrant, right flank and right upper quadrant with most prominent area of tenderness in the epigastrium, no rebound or guarding Extremities: No pitting edema Skin: Dry, no rashes Neuro: Speech clear, face symmetric, moves all extremities Psych: Normal affect Data : 07/14/21 08:05 07/14/21 08:05 Other Labs: Laboratory Results WBC 7.2 10^3/uL (4.0-10.0) 07/13/21 16:20 RBC 4.07 10^6/uL (4.1-5.3) L 07/13/21 16:20 Hgb 12.6 g/dL (11.5-15.3) 07/13/21 16:20 Hct 37.9 % (37.0-47.0) 07/13/21 16:20 MCV 93.1 fl (81-99) 07/13/21 16:20 MCH 31.0 pg (28.0-34.0) 07/13/21 16:20 MCHC 33.2 g/dL (30.0-36.0) 07/13/21 16:20 RDW 12.1 % (12.1-15.1) 07/13/21 16:20 Plt Count 329 10^3/cmm (130-400) 07/13/21 16:20 MPV 10.5 fL (7.4-10.4) H 07/13/21 16:20 Neut % (Auto) 56.3 % 07/13/21 16:20 Lymph % (Auto) 30.3 % 07/13/21 16:20 [place] % (Auto) 8.2 % 07/13/21 16:20 Eos % (Auto) 4.3 % 07/13/21 16:20 Baso % (Auto) 0.6 % 07/13/21 16:20 Neut # (Auto) 4.07 10^3/uL (1.8-7.7) 07/13/21 16:20 Lymph # (Auto) 2.2 10^3/uL (0.8-4.8) 07/13/21 16:20 [place] # (Auto) 0.6 10^3/uL (0.2-0.9) 07/13/21 16:20 Eos # (Auto) 0.3 10^3/uL (0.0-0.8) 07/13/21 16:20 Baso # (Auto) 0.0 10^3/uL (0.0-0.1) 07/13/21 16:20 Nucleated RBC % (auto) 0 % 07/13/21 16:20 Nucleated RBCs # 0.0 /100WBC 07/13/21 16:20 Sodium 136 mmol/L (136-145) 07/13/21 16:00 Potassium 4.4 mmol/L (3.5-5.1) 07/13/21 16:00 Chloride 100 mmol/L (98-107) 07/13/21 16:00 Carbon Dioxide 29 mmol/L (22-29) 07/13/21 16:00 Anion Gap 11.4 (5-19) 07/13/21 16:00 BUN 8 mg/dL (6-20) 07/13/21 16:00 Creatinine 0.8 mg/dL (0.5-0.9) 07/13/21 16:00 GFR Calculation 77.2 mL/min (90-130) L 07/13/21 16:00 Glucose 85 mg/dL (65-115) 07/13/21 16:00 Calculated Osmolality 280 mOsm/kg (285-295) L 07/13/21 16:00 Calcium 9.3 mg/dL (8.5-10.5) 07/13/21 16:00 Total Bilirubin 0.3 mg/dL (0.15-1.2) 07/13/21 16:00 AST 32 U/L (0-32) 07/13/21 16:00 ALT 45 U/L (0-33) H 07/13/21 16:00 Alkaline Phosphatase 72 IU/L (35-105) 07/13/21 16:00 Total Protein 6.9 g/dL (6.6-8.7) 07/13/21 16:00 Albumin 4.3 g/dL (3.5-5.2) 07/13/21 16:00 Globulin 2.6 g/dL (1.3-4.6) 07/13/21 16:00 Lipase 28 U/L (13-60) 07/13/21 18:15 HCG, Qual Negative (Negative) 07/13/21 16:00 Urine Color Yellow (Yellow) 07/13/21 16:25 Urine Appearance Clear (CLEAR) 07/13/21 16:25 Urine pH 5 (5-7) 07/13/21 16:25 Ur Specific [place] 1.010 (1.005-1.030) 07/13/21 16:25 Urine Protein Neg (Negative) 07/13/21 16:25 Urine Glucose (UA) Norm (Normal) 07/13/21 16:25 Urine Ketones Negative (Negative) 07/13/21 16:25 Urine Blood Neg (Negative) 07/13/21 16:25 Urine Nitrate Negative (Negative) 07/13/21 16:25 Urine Bilirubin Neg (Negative) 07/13/21 16:25 Urine Urobilinogen Norm mg/dL (Negative) 07/13/21 16:25 Ur Leukocyte Esterase Negative (Negative) 07/13/21 16:25 Impressions Abdomen/Pelvis CT 07/13/21 15:42 IMPRESSION: 1. No acute abdominopelvic pathology is identified. 2. Small cystic left adnexal lesion. No dedicated follow-up recommended secondary to size, appearance, and patient age. 3. Numerous small low-attenuation liver lesions. Suspect numerous small cysts; alternative diagnosis could include biliary hamartomas. Pathology such as micro abscesses considered unlikely. 4. No significant change from comparison. Radiation Dose CTDIVOL = (mGy): DLP = 1258.67 (mGy-cm) A&P Assessment and plan (1) Abdominal pain: Severe, persistent over the last couple of days and not relieved with oral pain medications. With elevation in lipase noted pancreatitis is in the differential although no findings on CT imaging did suggest and current lipase is normal. She does have numerous small low-attenuation liver lesions described by radiology as cysts or biliary hematomas. LFTs are normal. She has a left adnexal cyst but that is not in the area where she is having the pain. Referred pain is possible but just seems less likely. Given her history of renal artery stenosis, difficult to control hypertension and hyperlipidemia, concerned about abdominal angina, ischemia. Also within the differential is recurrent peptic ulcer disease, esophagitis, ileitis, among others. Status: Acute Qualifiers: Abdominal location: upper abdomen, unspecified Qualified Code(s): R10.10 - Upper abdominal pain, unspecified (2) Elevated lipase: Present on 07/10/2021 to around 1000 Status: Acute (3) Renal artery stenosis: Status: Chronic (4) HTN (hypertension): Historically with diffic. Normally on what sounds like amlodipine, losartan, propranolol and spironolactone ult to treat hypertension secondary to above however blood pressures lately have been at lower range of normal Status: Chronic Qualifiers: Hypertension type: unspecified Qualified Code(s): I10 - Essential (primary) hypertension (5) Hyperlipidemia: Chronically on statin Status: Chronic Qualifiers: Hyperlipidemia type: unspecified Qualified Code(s): E78.5 - Hyp erlipidemia, unspecified (6) Migraine headache: Chronically on Aimovig which she started 2 months ago with good result Status: Chronic Qualifiers: Intractability: intractable Migraine type: without aura Status migrainosus presence: without status migrainosus Qualified Code(s): G43.019 - Migraine without aura, intractable, without status migrainosus (7) GERD (gastroesophageal reflux disease): Chronically on twice daily PPI in the form of Protonix which does not always seem to help as much as it used to. Reports history of ulcers in the past Status: Chronic Qualifiers: Esophagitis presence: esophagitis presence not specified Qualified Code(s): K21.9 - Gastro-esophageal reflux disease without esophagitis (8) COVID-19 vaccine series started: Received first dose of Madonna on July 03 Status: Acute (9) COVID-19 laura castellanosuler: Status: Chronic Additional A&P Information Observation admission Repeat lactate and lipase in the morning along with CRP Clear liquids and IV fluids tonight Status post Rocephin and Flagyl in the emergency room, I have not currently continued but will need to monitor for indication to resume CTA of the abdomen and pelvis to evaluate for any obstructive process that might be contributing to ischemia Continue PPI Continue Zofran as needed Currently we will continue pain control, getting relief with morphine Add stool softeners secondary to narcotics Address home medications when accurate list is available, chronically on amlodipine, statin, ARB, propranolol and spironolactone. Given current blood pressures may need to make adjustments of medications to avoid hypotension as a contributor to her symptoms. If above work-up is unremarkable need to consider arrangements for EGD; last EGD was at [facility] about a year ago Currently low risk for VTE given observation stay Supportive care otherwise Anticipate discharge home with outpatient follow-up Full code Attestations Medical Necessity Statement*: Anticipated stay less than 2 midnights in lady with significant abdominal pain without a clear etiology currently though had an elevated lipase a couple of days ago. Has required multiple doses of narcotic pain medications for relief of the pain. Coding Level of Care Code Acute Data Reviewer for Chg Fwd Diagnoses Abdominal pain R10.10 Abdominal location: upper abdomen, unspecified Elevated lipase R74.8 Renal artery stenosis I70.1 HTN (hypertension) I10 Hypertension type: unspecified Hyperlipidemia E78.5 Hyperlipidemia type: unspecified Migraine headache G43.019 Intractability: intractable Migraine type: without aura Status migrainosus presence: without status migrainosus GERD (gastroesophageal reflux disease) K21.9 Esophagitis presence: esophagitis presence not specified COVID-19 vaccine series started Z23 COVID-19 laura vuong B94.8
[2021-07-14] MEDS: D5-NS 0.45% + KCL 20 mEq 20 MEQ/1,000 ML BAG 75 MEQ IV ×3 (01:23→23:13)
[2021-07-14] MEDS: ondansetron 2 mg/ML SDV 2 mL 4 MG IVP ×4 (01:23→18:11)
[2021-07-14] MEDS: morphine 4 mg/mL SDV 1 mL IVP ×3 (01:24→10:55)
--- NOTE | 2021-07-14 06:00 | CTR_ITS ---
PROCEDURE INFORMATION: Exam: CTA Abdomen and Pelvis With Contrast Exam date and time: 07/14/2021 6:00 AM Age: 45 years old Clinical indication: Other: Abd pain; Abdominal pain; Generalized; Prior surgery; Additional info: Severe abd pain, HX renal artery stenosis, lipase was >1000 2 days ago, now normal, severe pain, ? ^mesenteric ischemia TECHNIQUE: Imaging protocol: Computed tomographic angiography of the abdomen and pelvis with contrast material. 3D rendering (Not supervised by radiologist): MIP and/or 3D reconstructed images were created by the technologist. Total images: 1203 Radiation optimization: All CT scans at this facility use at least one of these dose optimization techniques: automated exposure control; mA and/or kV adjustment per patient size (includes targeted exams where dose is matched to clinical indication); or iterative reconstruction. Contrast material: OMNI 350; Contrast volume: 95 ml; Contrast route: INTRAVENOUS (IV); COMPARISON: CR XR chest 1V portable [id number] 07/10/2021 3:44 PM RADIATION DOSE METRICS: Total DLP (mGy-cm): 786.86 FINDINGS: Aorta: No aortic aneurysm. No aortic dissection. Celiac trunk and mesenteric arteries: No occlusion or significant stenosis. Renal arteries: No occlusion or significant stenosis. Right iliac arteries: No occlusion or significant stenosis. Left iliac arteries: No occlusion or significant stenosis. Liver: 13 mm largest cyst noted in a liver that has multiple nonspecific hypodense lesions most consistent with liver cysts. This finding is stable when compared to the prior exam. Gallbladder and bile ducts: Cholecystectomy noted with postoperative biliary ductal fullness. This finding is stable when compared to the prior exam. Pancreas: Unremarkable. No mass. No ductal dilation. Spleen: Unremarkable. No splenomegaly. Adrenal glands: Unremarkable. No mass. Kidneys and ureters: Unremarkable. No solid mass. No hydronephrosis. Stomach and bowel: Unremarkable. No obstruction. No mucosal thickening. Appendix: No evidence of appendicitis. Intraperitoneal space: Unremarkable. No free air. No significant fluid collection. Lymph nodes: Unremarkable. No enlarged lymph nodes. Urinary bladder: Unremarkable. No mass. Reproductive: Prior hysterectomy noted. Bones/joints: No acute fracture. No dislocation. Soft tissues: Unremarkable. CT/CT angio abdomen pelvis [id number] IMPRESSION: Unremarkable CTA. Radiation Dose CTDIVOL = (mGy): DLP = 786.86 (mGy-cm)
[2021-07-14] MEDS: iohexol 350 mg/mL 100 mL Btl IV (06:48)
[2021-07-14] MEDS: morphine 4 mg/mL SDV 1 mL 2 MG IVP (07:34)
[2021-07-14] MEDS: pantoprazole DR 40 mg Tablet PO ×2 (08:15→18:03)
[2021-07-14] MEDS: docusate sodium 100 mg Capsule 200 MG PO ×2 (08:15→18:03)
[2021-07-14 08:17] LABS: Basophils % 0.7 %; Eosinophils # 0.2 10^3/uL (0.0-0.8); Eosinophils % 3.3 %; Hematocrit 38.4 % (37.0-47.0); Hemoglobin 12.5 g/dL (11.5-15.3); Lymphocytes # 1.2 10^3/uL (0.8-4.8); Lymphocytes % 20.2 %; Mean Corpuscular HGB Conc 32.6 g/dL (30.0-36.0); Mean Corpuscular Hemoglobin 31.3 pg (28.0-34.0); Mean Corpuscular Volume 96.2 fl (81-99); Mean Platelet Volume 10.5 fL (7.4-10.4); Monocytes # 0.5 10^3/uL (0.2-0.9); Monocytes % 8.4 %; Neutrophils # 3.85 10^3/uL (1.8-7.7); Neutrophils % 67.2 %; Nucleated Red Blood Cells % 0 %; Platelet Count 299 10^3/cmm (130-400); Red Blood Count 3.99 10^6/uL (4.1-5.3); Red Cell Distribution Width 12.1 % (12.1-15.1); White Blood Count 5.7 10^3/uL (4.0-10.0)
[2021-07-14 08:43] LABS: Lactate (Lactic Acid level) 0.6 mmol/L (0.5-2.2)
[2021-07-14 08:45] LABS: Alanine Aminotransferase 34 U/L (0-33); Albumin Level 3.6 g/dL (3.5-5.2); Alkaline Phosphatase 67 IU/L (35-105); Anion Gap 11.9 (5-19); Aspartate Amino Transferase 23 U/L (0-32); Blood Urea Nitrogen 4 mg/dL (6-20); C Reactive Protein 4.3 mg/L (0.0-4.9); Calcium 8.2 mg/dL (8.5-10.5); Carbon Dioxide 27 mmol/L (22-29); Chloride 100 mmol/L (98-107); Globulin 2.4 g/dL (1.3-4.6); Glomerular Filtration Rate 107.6 mL/min (90-130); Glucose 96 mg/dL (65-115); Lipase 23 U/L (13-60); Osmolality Calculated 277 mOsm/kg (285-295); Potassium 3.9 mmol/L (3.5-5.1); Sodium 135 mmol/L (136-145); Total Bilirubin 0.3 mg/dL (0.15-1.2)
--- NOTE | 2021-07-14 09:42 | PC.CHAP ---
Pastoral Care Encounter/Spiritual Assessment Type of Contact [] Declined sr. director visit [] Patient/Family/Request visit [] Outpatient visit [] Follow-up visit [] Physician referral [] Code/Alert [x] Routine visit [] Staff referral [] Actively dying [] Patient sleeping [] Family support [] [] Out of room [] Palliative care [] [] Receiving care in room [] Pre-surgical visit [] Trauma [] Long length of stay [] ICU visit [] Other: Relational/Emotional Strength x[] Patient feels connected with others/family/visitors/staff [] Distress [] Loneliness/isolation [] Abandonment Spirituality of Patient [x] Person of Priscila [x] Attends Confucianist of their Priscila [x] Believes in Prayer [] Reads Bible or Islam materials [] There are Spiritual issues to be addressed Seat Cover Installer Interventions x[] Prayer [x] Active listening [x] Non-anxious presence [] Spiritual/emotional support [] Crisis/trauma care [] Spiritual counseling [] Bereavement support [] Provided bereavement packet [] Provided Bible/devotional materials [] Provided toy/stuffed animal, coloring book to patient or family member [] Provided Communion [] Anointing/[place] [] Salvation [x] Completed spiritual assessment [] Other: Impact on Illness or Injury [] Angry [] Fearful [] Anxious [] Often cries [] Exhaustion [] Unable to work [] Unable to attend yarsani [] Unable to walk/stand [] Unable to read [] Unable to drive [] Unable to eat/drink [] Unable to sleep [] Unable to be with family [] Patient intubated [] Other: Summary patient worried whata\s wrong Time spent with patient 10 min
--- NOTE | 2021-07-14 09:43 | PC.PHAR ---
pt states she takes care of her own medications-pt states she isnt taking clonidine 0.1mg bid pt states her dr renu santizo filled on 07/03/21 pt states she called and told them that medication had been dced and not to fill again-pt states she has been out of pristiq 50mg for 2 days-sukhdev states last filled on 06/05/21-sukhdev states they last filled 07/03/21 propranolol 60mg bid pt states she takes 80mg qam and 60mg hs-notes are made in the pharmacy comments
[2021-07-14] MEDS: HYDROmorphone 1 mg/mL INJ 1 mL 0.5 MG IVP ×3 (14:14→23:12)
--- NOTE | 2021-07-14 14:17 | P.CONIM_ITS ---
Providers/Reason For Consult Consulting Physician/Specialty*: General Surgery Andreas Crawford MD Reason for Consult*: Upper abdominal discomfort and nausea. Attending Physician: Vitor Sorensen MD Primary Care Provider: Tunde Vargas History of Present Illness History of Present Illness Olivia Adams is a pleasant 45 year old female who says that 10 days ago she started developing some epigastric and right upper quadrant pain after eating. She has not identified any particular food intolerances. She is status post cholecystectomy years ago. She said the pain eventually went around to her back and she felt like she had pain on both sides where my kidneys are. She says t he pain is up underneath her breasts on her chest wall. She denies any history of trauma. She developed nausea with her pain but has not vomited. She has had trouble sleeping because of her discomfort. She says that she has blacked out 3 times over the past month. Her only new medication is Aimovig which she started a couple of months ago. Her bowel function has not changed, though she admits to ongoing constipation forever. She does not take anything for this and says she usually has a bowel movement every other day or so. She denies melena and hematochezia, fevers and chills, etc. She came to the emergency room for evaluation and I believe was sent back home on some pain medication and antiemetics. She had no return. The patient had a colonoscopy and an EGD last year in [place]. She says her colonoscopy was normal. She was diagnosed with peptic ulcer disease back in 2009 on an EGD at that time. She was found to be H. pylori positive and was treated at that time. She also had been taking quite a bit of Excedrin at that time and does not take anymore NSAIDs. She says her physicians there wanted to do an EGD on her every 6 months for a while and every time she was found to have ulcers, although it sounds like the number of ulcers has decreased on subsequent studies. They told me I had 26 ulcers at one time. She has been on Protonix daily ever since being diagnosed with peptic ulcer disease back in 2009. She stopped smoking October 2020. She denies any regular ethanol use. She tries to stay away from caffeine, but does drink green tea every morning. The patient may be feeling a little bit better but has had some pain medication. She continues to pass flatus. She is on clear liquids but says that even those seem to be making her a little bit nauseated at times. She had a strange episode this morning where she developed a sudden shooting pain from her lower back down her left lower extremity. She says this is brand-new. Review of Systems General: Reports: 10 or more systems reviewed and unremarkable except in HPI and below Const: Reports: change in sleep pattern (Difficulty sleeping); Denies: fever(s) Card: Reports: chest pain GI: Reports: abdominal pain and nausea; Denies: vomiting, change in bowel habits, hematochezia or melena : Reports: flank pain Neuro: Reports: headache(s) (History of migraines, started Aimovig 04/2021) and other ( Sciatic pain in the left lower extremity this morning) Meds/Allergies Home Medications and Allergies Home Medications Medication Instructions Recorded Confirmed Last Taken Type amlodipine 10 mg tablet 10 mg PO BEDTIME 12/28/20 07/14/21 07/10/21 06:00 History atorvastatin 40 mg tablet 40 mg PO BEDTIME 02/03/21 07/14/21 07/09/21 History cholecalciferol (vitamin D3) 125 125 mcg PO QAM 02/03/21 07/14/21 07/13/21 History mcg (5,000 unit) tablet pantoprazole 40 mg tablet,delayed 40 mg PO BID tab 02/03/21 07/14/21 07/13/21 History release acetaminophen [Tylenol Extra 1,000 mg PO Q4H PRN 07/10/21 07/14/21 07/10/21 07:30 History Strength] glutamine [L-Glutamine] 500 mg PO QAM 07/10/21 07/14/21 07/13/21 History ondansetron HCl [Zofran] 4 mg PO Q8H PRN 5 Days tab 07/10/21 07/14/21 Unknown Rx oxycodone 5 mg PO Q4H PRN #14 cap 07/10/21 07/14/21 07/13/21 Rx propranolol See Rx Instructions .ROUTE .COMPLEX 07/10/21 07/14/21 07/13/21 History spironolactone 50 mg PO QAM 07/10/21 07/14/21 07/13/21 History desvenlafaxine succinate [Pristiq] 50 mg PO DAILY 07/14/21 07/14/21 07/12/21 History erenumab-aooe [Aimovig 70 mg SUBCUT Q30D 07/14/21 07/14/21 Unknown History Autoinjector] vitamin B complex [Super B Complex] 1 tab PO QAM 07/14/21 07/14/21 Unknown History Allergies Allergy/AdvReac Type Severity Reaction Status Date / Time No Known Allergies Allergy Verified 07/14/21 09:47 Current Medications Current Medications Generic Name Dose Route Start Last Admin Trade Name Freq PRN Reason Stop Dose Admin Docusate Sodium 200 mg 07/14/21 09:00 07/14/21 08:15 Docusate Sodium 100 Mg Capsule PO 200 mg BID LOLIS Administration Potassium Chloride/Dextrose/Sod Cl 20 meq in 1,000 mls @ 75 mls/hr 07/14/21 00:45 07/14/21 01:23 D5-Ns 0.45% + Kcl 20 Meq IV 75 mls/hr .[id number] LOLIS Administration Ondansetron HCl 4 mg 07/14/21 06:38 07/14/21 08:15 Ondansetron 2 Mg/Ml Sdv 2 Ml IVP 4 mg Q4H PRN Administration vomiting, or N/V if npo Pantoprazole Sodium 40 mg 07/14/21 09:00 07/14/21 08:[address] 40 Mg Tablet PO 40 mg DAILY LOLIS Administration PFSH Acute PFSH: Medical History (Updated 07/14/21 @ 14:54 by Andreas Crawford MD) 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 GERD (gastroesophageal reflux disease) History of peptic ulcer disease History of shingles 3 times HTN (hypertension) Hyperlipidemia Migraine headache Renal artery stenosis Surgical History (Updated 07/14/21 @ 15:05 by Andreas Crawford MD) H/O section x 1 H/O knee surgery Right arthroscopy x 4 H/O shoulder surgery Right biceps tendon tear repair H/O: hysterectomy / Right oophorectomy History of colonoscopy 2019 -- normal History of esophagogastroduodenoscopy (EGD) 2019 -- ulcers S/P cholecystectomy Family History Grandfather Diabetes Grandmother Diabetes Mother Hypoglycemia Other CHF (congestive heart failure) COPD (chronic obstructive pulmonary disease) Hypertension Denies family history of Cancer Social History (Updated 07/14/21 @ 15:08 by Andreas Crawford MD) Smoking and tobacco status: former smoker Quit status (tobacco): has quit using tobacco Year quit tobacco: 2019 Former quit date comment: Quit after she was diagnosed with COVID-19 Alcohol intake: never Current gender identity: Female Female Reproductive History: Spontaneous abortions: No Vitals/I&O/Wt Last Vital Signs Temp 98.0 F 07/14/21 11:50 Pulse 63 07/14/21 11:50 Resp 16 07/14/21 11:50 BP 121/83 07/14/21 11:50 Pulse Ox 94 07/14/21 11:50 07/13/21 07/14/21 07/14/21 22:59 06:59 14:59 Intake Total 1150 / 1150 0 / 0 Balance 1150 / 1150 0 / 0 Weight last 48 hrs Weight 156 lb 6 oz Weight 156 lb 6 oz Weight 140 lb Physical Exam Narrative: EXAM NARRATIVE: The patient was encountered in her hospital room. She does not appear to be in any distress. The pupils are equal. No carotid bruits are heard. The lungs are clear anteriorly. The heart is regular. The abdomen is mildly obese but is soft and has bowel sounds. She does not really seem to have much in the way of tenderness on my exam but she does tell me that she had pain medication not too long ago. The chest wall where she says that she has her discomfort does not seem to be particularly point tender anywhere. The extremities reveal no edema. Neurologically the patient can move all limbs to command. Data Imaging^: CT Abd/Pel: Radiologist's impression: CT abdomen/pelvis 07/13/2021 IMPRESSION: 1. No acute abdominopelvic pathology is identified. 2. Small cystic left adnexal lesion. No dedicated follow-up recommended secondary to size, appearance, and patient age. 3. Numerous small low-attenuation liver lesions. Suspect numerous small cysts; alternative diagnosis could include biliary hamartomas. Pathology such as micro abscesses considered unlikely. 4. No significant change from comparison. Other CT: Radiologist's impression: CTA abdomen/pelvis 07/14/2021 IMPRESSION: Unremarkable CTA. A&P Assessment and plan (1) Abdominal pain: The patient's abdominal pain almost seems to be more up on the chest wall. She has a perplexing multitude of musculoskeletal, GI, and neurologic symptoms that are occurring. Her CAT scan abdomen/pelvis does not show any obvious abnormalities. I have difficulty making any specific recommendations at this time. I will continue following with you. Status: Acute Qualifiers: Abdominal location: upper abdomen, unspecified Qualified Code(s): R10.10 - Upper abdominal pain, unspecified (2) History of peptic ulcer disease: I will at least check a Helicobacter antibody to see if that is clearly normal or abnormal. I do not think that endoscopy is necessarily going to be particularly helpful otherwise at this time. Status: Acute Consult Attestations Medical Necessity Statement: See admitting service's notation. Coding Level of Care Code Acute Circulation Sales Representative for [facility] Fwd Diagnoses Abdominal pain R10.10 Abdominal location: upper abdomen, unspecified History of peptic ulcer disease Z87.11
--- NOTE | 2021-07-14 14:30 | MR_ITS ---
WS: [id number] MRI/MRCP OF THE ABDOMEN WITHOUT GADOLINIUM ENHANCEMENT TECHNIQUE: Thin and thick slab MRCP, Axial T2, Coronal MRCP, Axial Dual Echo, and Axial 2-D Fiesta imaging was obtained. Coronal 2-D Fiesta imaging. CLINICAL INFORMATION: abdominal pain, elevated lipase COMPARISON: None. FINDINGS: Images limited due to motion artifact. Again seen are numerous tiny cystic appearing T2 hyperintense lesions throughout both hepatic lobes likely numerous small tiny hepatic cysts or biliary hamartomas. These are too small to definitively characterize and recommend further evaluation with gadolinium to ensure no enhancement. Cholecystectomy. Physiologic postcholecystectomy bile duct dilatation. Normal pancreas. No significan t pancreatic ductal dilatation. No evidence of choledocholithiasis. No hydronephrosis in either kidne y. Small left renal cyst. Normal caliber abdominal aorta. Normal portal vein and splenic vein. MR/MR MRCP [id number] Impression: Some images limited due to motion artifact. 1. Mild hepatomegaly with numerous tiny T2 hyperintense lesions throughout bot h hepatic lobes. These are too small to definitively characterize but likely re present tiny biliary hamartomas versus tiny hepatic cysts. Recommend further ev aluation with gadolinium to ensure no enhancement. 2. Largest lesion in the right hepatic lobe measures 9 mm. 3. Small left renal cyst. 4. Prior cholecystectomy. No evidence of choledocholithiasis. 5. Pancreas appears normal.
--- NOTE | 2021-07-14 14:58 | PC.NURSE ---
Patient to MRI at this time.
[2021-07-14 15:25] LABS: H. Pylori IgG Antibody Negative (Negative)
--- NOTE | 2021-07-14 15:49 | ECG_ITS ---
[facility] Test Date: 2021-07-14 Pat Name: Olivia Adams Department: Room: 256 Gender: Female Language Teacher: : 1975 Requested By: Vitor Sorensen Order Number: [id number] Maria Isabel MD: Alida Garza M.D. Measurements Intervals [place] Rate: 60 P: 42 TN: 183 QRS: -5 QRSD: 79 T: 19 QT: 421 QTc: 423 Interpretive Statements SINUS RHYTHM NON SPECIFIC T WAVE CHANGES No previous ECG available for comparison Electronically Signed On 07-14-2021 20:01:31 CDT by Alida Garza M.D. [id number]
--- NOTE | 2021-07-14 17:14 | P.PN_ITS ---
Subjective Subjective: Interval history: Patient was seen this morning, she is seen ambulating on the room, she tells me that she has had abdominal pain for some period of time, she has a history of gastric ulcers, she tested positive for H. pylori at one time, was treated, but she has chronic surveillance EGDs for gastric ulcers done through [facility], the last time she was seen was roughly a year ago, and will was advised that she did not need to follow-up any further, no concerning for pathology for malignancy, she tells me that for the last few days, for the last month she has had some epigastric abdominal pain, she thought it was her acid reflux, she tells me that sometimes with acid reflux she can develop severe nausea -She tells me that the first time she was here in the hospital, she was actually at [facility], when she developed epigastric abdominal discomfort with severe sarah sea, it was so severe she actually passed out, someone at the gas station actually found her on the floor, helped her to her feet, she she tells me that she is passed out like this before a few weeks ago when she had another episode abdominal pain and nausea -No cardiac history, no chest pain, no palpitations, no history of strokes, denies history of drug use, denies a history of marijuana use -She tells me that her abdomen is just more distended no more than usual, it feels like she is she tells me -Denies any bloody or black stools, does report a colonoscopy, unremarkable findings, no history of ulcerative colitis, no Crohn's disease -Denies any marijuana use, denies any drug use, her lipase a few days ago was over thousand, now it is normal, denies any alcohol use, no trauma, no steroid use -She does report Aimovig use about 3 months ago for migraines Vitals/I&O/Wt Last Vital Signs Temp 98.2 F 07/14/21 16:34 Pulse 81 07/14/21 16:34 Resp 19 H 07/14/21 16:34 BP 114/79 07/14/21 16:34 Pulse Ox 99 07/14/21 16:34 07/14/21 07/14/21 07/14/21 06:59 14:59 22:59 Intake Total 0 / 0 1000 / 1000 Balance 0 / 0 1000 / 1000 Weight last 48 hrs Weight 70.931 kg Weight 70.931 kg Weight 63.503 kg Physical Exam Const: COMMON NORMALS: no acute distress and patient oriented x3 Resp: COMMON NORMALS: normal respiratory effort, No retractions, No use of accessory muscles and clear to auscultation bilaterally AUSCULTATION: clear to auscultation bilaterally Cardio: COMMON NORMALS: regular rate, regular rhythm, S1 normal heart sound present and S2 normal heart sound present RATE: regular rate RHYTHM: regular rhythm HEART SOUNDS: S1 normal heart sound present and S2 normal heart sound present GI: COMMON NORMALS: Normal to inspection, nondistended, normoactive bowel sounds present INSPECTION: Yes abdominal distension PALPATION: Yes Tenderness to palpation present (GI) (epigastric ) Extremity: COMMON NORMALS: no pedal edema Neuro: COMMON NORMALS: patient oriented x3 Psych: COMMON NORMALS: mental status grossly normal Data : 07/14/21 08:05 07/14/21 08:05 A&P Assessment and plan (1) Abdominal pain: -Etiology unclear at this time -Will order MRCP -We will order H. pylori -Trend liver markers, lipase, lactic acid -Patient is up and moving although she has abdominal pain, but abdomen is distended -Dilaudid for pain -Continue IV fluids -Continue bowel regimen, MiraLAX, Colace -Clear liquid -Increase Protonix to 40 twice daily -General surgery on consult -Full code -Lovenox for DVT prophylaxis Severe, persistent over the last couple of days and not relieved with oral pain medications. With elevation in lipase noted pancreatitis is in the differential although no findings on CT imaging did suggest and current lipase is normal. She does have numerous small low-attenuation liver lesions described by radiology as cysts or biliary hematomas. LFTs are normal. She has a left adnexal cyst but that is not in the area where she is having the pain. Referred pain is possible but just seems less likely. Given her history of renal artery stenosis, difficult to control hypertension and hyperlipidemia, concerned about abdominal angina, ischemia. Also within the differential is recurrent peptic ulcer disease, esophagitis, ileitis, among others. Status: Acute Qualifiers: Abdominal location: upper abdomen, unspecified Qualified Code(s): R10.10 - Upper abdominal pain, unspecified (2) Elevated lipase: Present on 07/10/2021 to around 1000 Status: Acute (3) Renal artery stenosis: Status: Chronic (4) HTN (hypertension): Historically with diffic. Normally on what sounds like amlodipine, losartan, propranolol and spironolactone ult to treat hypertension secondary to above however blood pressures lately have been at lower range of normal Status: Chronic Qualifiers: Hypertension type: unspecified Qualified Code(s): I10 - Essential (primary) hypertension (5) Hyperlipidemia: Chronically on statin Status: Chronic Qualifiers: Hyperlipidemia type: unspecified Qualified Code(s): E78.5 - Hyperlipidemia, unspecified (6) Migraine headache: Chronically on Aimovig which she started 2 months ago with good result Status: Chronic Qualifiers: Migraine type: without aura Status migrainosus presence: without status migrainosus Intractability: intractable Qualified Code(s): G43.019 - Migraine without aura, intractable, without status migrainosus (7) GERD (gastroesophageal reflux disease): Chronically on twice daily PPI in the form of Protonix which does not always seem to help as much as it used to. 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 (10) Syncope: -Does describe a syncopal episode -Sound like vasovagal syncope with her pain and nausea -However given her young age we will do an appropriate work-up -Troponin, BMP, TSH, telemetry monitoring, EKG, cardiac echo, carotid artery ultrasound Status: Acute Additional A&P Information Lovenox for DVT prophylaxis Supportive care otherwise Anticipate discharge home with outpatient follow-up Full code Attestations Medical Necessity Statement*: Patient requires hospitalization for abdominal pain Coding Level of Care Code Acute Java Tech for g Fwd Diagnoses Abdominal pain R10.10 Abdominal location: upper abdomen, unspecified Elevated lipase R74.8 Renal artery stenosis I70.1 HTN (hypertension) I10 Hypertension type: unspecified Hyperlipidemia E78.5 Hyperlipidemia type: unspecified Migraine headache G43.019 Migraine type: without aura Status migrainosus presence: without status migrainosus Intractability: intractable GERD (gastroesophageal reflux disease) K21.9 Esophagitis presence: esophagitis presence not specified COVID-19 vaccine series started Z23 COVID-19 laura vuong B94.8 Syncope R55
[2021-07-14] MEDS: polyethylene glycol 3350 Pkt 17 gm PO (18:02)
[2021-07-14] MEDS: enoxaparin 40 mg/0.4 mL Syringe SUBCUT (18:03)
[2021-07-14 18:12] LABS: Troponin(5th) Baseline 6 ng/L (0-10)
--- NOTE | 2021-07-14 19:23 | PC.NURSE ---
Report to [facility] ODOM at this time.
[2021-07-14 20:07] LABS: Troponin 5 2HR Delta 0 ABS# (0-10)
[2021-07-14] MEDS: sennosides 8.6 mg Tablet 17.2 MG PO (20:22)
--- NOTE | 2021-07-14 21:49 | ECG_ITS ---
[facility] Test Date: 2021-07-14 Pat Name: Olivia Adams Department: Room: 256 Gender: Female Labor And Delivery Registered Nurse: : 1975 Requested By: Vitor Sorensen Order Number: [id number] Maria Isabel MD: Alida Garza M.D. Measurements Intervals [place] Rate: 65 P: 40 MS: 172 QRS: -4 QRSD: 97 T: 12 QT: 419 QTc: 438 Interpretive Statements SINUS RHYTHM LOW QRS VOLTAGE IN PRECORDIAL LEADS [QRS DEFLECTION < 1.0 mV IN CHEST LEADS] Compared to ECG 07/14/2021 16:41:26 Low QRS voltage now present Electronically Signed On 07-14-2021 20:23:50 CDT by Alida Garza M.D. [id number]
[2021-07-15] VITALS (11 sets, daily range): BP systolic 113–152; BP diastolic 75–97; PULSE 63–74; RESP 16–20; TEMP 36.4–36.9; O2SAT 97–100
[2021-07-15 01:28] LABS: Troponin 5 6HR Delta 0 ng/L (0-12)
[2021-07-15] MEDS: HYDROmorphone 1 mg/mL INJ 1 mL 0.5 MG IVP ×4 (04:42→21:06)
[2021-07-15] MEDS: ondansetron 2 mg/ML SDV 2 mL 4 MG IVP ×2 (04:44→11:25)
[2021-07-15] MEDS: pantoprazole DR 40 mg Tablet PO ×2 (05:20→16:57)
--- NOTE | 2021-07-15 06:00 | USCV_ITS ---
Olivia Adams Age: 45 Gender: F : 1975 Exam Date: 07/15/2021 07:44 Ordering Phys: Vitor Sorensen MD Technologist: Exam Location: [facility] [place] Indication: SYNCOPE BP: 134 / 81 HR: 64 Rhythm: Sinus Technical Quality: Good MEASUREMENTS (Male / Female) Normal Values 2D ECHO LV Diastolic Diameter PLAX 3.5 cm 4.2 - 5.9 / 3.9 - 5.3 cm LV Systolic Diameter PLAX 1.9 cm IVS Diastolic Thickness 0.7 cm 0.6 - 1.0 / 0.6 - 0.9 cm IVS Systolic Thickness 1.0 cm LVPW Diastolic Thickness 0.8 cm 0.6 - 1.0 / 0.6 - 0.9 cm LVPW Systolic Thickness 1.1 cm LVOT Diameter 2.0 cm LV Ejection Fraction 2D Teich 76.6 % LA Diameter 2.6 cm LA Width 3.5 cm LA Height 3.3 cm RA Width 2.7 cm RA Height 2.9 cm Aorta at Sinotubular Diameter 2.4 cm M-MODE LV Diastolic Diameter MM 4.0 cm 4.2 - 5.9 / 3.9 - 5.3 cm LV Systolic Diameter MM 2.8 cm LV Ejection Fraction MM Teich 57.1 % IVS Diastolic Thickness MM 1.1 cm 0.6 - 1.0 / 0.6 - 0.9 cm IVS Systolic Thickness MM 1.4 cm LVPW Diastolic Thickness MM 1.3 cm 0.6 - 1.0 / 0.6 - 0.9 cm LVPW Systolic Thickness MM 1.6 cm RV Diastolic Diameter MM 1.6 cm MV E Point Septal Separation 0.4 cm DOPPLER AV Peak Velocity 121.0 cm/s LVOT Peak Velocity 105.0 cm/s AV Area Cont Eq vti 2.9 cm squared AV Area Cont Eq pk 2.6 cm squared MV Area PHT 3.0 cm squared Mitral E to A Ratio 1.0 MV E' Velocity 37.0 cm/s Mitral E to MV E' Ratio 5.3 Mitral E to LV E' Lateral Ratio 5.0 Mitral E to LV E' Septal Ratio 5.8 TR Peak Velocity 198.0 cm/s TR Peak Gradient 15.7 mmHg TV Peak E Velocity 82.0 cm/s Right Atrial Pressure 3.0 mmHg Pulmonary Artery Systolic Pressu 18.7 mmHg PV Peak Velocity 68.0 cm/s FINDINGS Left Ventricle Normal left ventricular size and systolic function, EF 60%, visual.no regional wall motion abnormalities. Right Ventricle The right ventricle is normal in size and function. Right Atrium The right atrium is normal in size. Left Atrium The left atrium is normal in size. Mitral Valve Trace mitral valve regurgitation. Aortic Valve No gross abnormalities noted Tricuspid Valve No gross abnormalities noted Pulmonic Valve Pulmonic valve not well visualized. Pericardium Normal pericardium without effusion. Aorta Normal ascending aorta dimension. CONCLUSIONS Normal left ventricular size and systolic function, EF 60%, visual.no regional wall motion abnormalities. Normal cardiac chamber sizes. No significant stenotic or regurgitant lesions There is no pericardial effusion. There are no intracardiac masses. There are no prior echocardiogram studies to compare. Dr Babatunde River MD [facility] (Electronically Signed) Final Date: 15 July 2021 11:50 S
--- NOTE | 2021-07-15 06:00 | USCV_ITS ---
Olivia Adams Age: 45 Gender: F : 1975 Exam Date: 07/15/2021 08:00 Ordering Phys: Vitor Sorensen MD Technologist: Exam Location: [facility] [place] Indication: SYNCOPE Risk Factors: Previous Vascular Surgery: Right Brachial BP: / Left Brachial BP: / Right Left Velocity (cm/s) Spectral Plaque Velocity (cm/s) Spectral Plaque Syst/Diast Broadening Syst/Diast Broadening 67.30/ 17.05 Prox CCA 76.10 / 29.50 75.00/ 25.40 Mid CCA 75.40 / 27.20 60.10/ 20.35 Distal CCA 71.50 / 17.10 66.40/ 21.00 Prox ICA 73.00 / 31.10 53.90/ 21.70 Mid ICA 76.10 / 26.05 67.70/ 29.60 Distal ICA 86.20 / 36.50 101.00 ECA 65.30 0.93 ICA/CCA 1.13 Antegrade Vertebral Antegrade 67.60/ 28.00 cm/s 47.40/ 14.80 cm/s Tri Subclavian Tri 92.40 69.10 FINDINGS Minimal intimal thickening at the bifurcations bilaterally Antegrade flow in the vertebral arteries bilaterally Normal Doppler flow velocities in all the arteries mentioned above. CONCLUSIONS No significant plaques or unstable lesions in the above- mentioned arteries. No significant stenosis based on the above findings Dr Babatunde River MD [facility] (Electronically Signed) Final Date: 16 July 2021 22:35 S
[2021-07-15] MEDS: docusate sodium 100 mg Capsule 200 MG PO (08:31)
[2021-07-15] MEDS: polyethylene glycol 3350 Pkt 17 gm PO (08:37)
[2021-07-15 09:55] LABS: Basophils # 0.1 10^3/uL (0.0-0.1); Basophils % 0.9 %; Eosinophils # 0.3 10^3/uL (0.0-0.8); Eosinophils % 5.3 %; Hematocrit 41.8 % (37.0-47.0); Hemoglobin 13.8 g/dL (11.5-15.3); Lymphocytes # 1.6 10^3/uL (0.8-4.8); Lymphocytes % 28.9 %; Mean Corpuscular Hemoglobin 31.6 pg (28.0-34.0); Mean Corpuscular Volume 95.7 fl (81-99); Mean Platelet Volume 10.9 fL (7.4-10.4); Monocytes # 0.6 10^3/uL (0.2-0.9); Neutrophils # 3.02 10^3/uL (1.8-7.7); Neutrophils % 54.7 %; Nucleated Red Blood Cells % 0 %; Platelet Count 308 10^3/cmm (130-400); Red Blood Count 4.37 10^6/uL (4.1-5.3); Red Cell Distribution Width 12.1 % (12.1-15.1); White Blood Count 5.5 10^3/uL (4.0-10.0)
[2021-07-15 10:14] LABS: Alanine Aminotransferase 34 U/L (0-33); Albumin Level 4.3 g/dL (3.5-5.2); Alkaline Phosphatase 74 IU/L (35-105); Anion Gap 12.3 (5-19); Aspartate Amino Transferase 27 U/L (0-32); Blood Urea Nitrogen 2 mg/dL (6-20); C Reactive Protein 2.5 mg/L (0.0-4.9); Calcium 9.4 mg/dL (8.5-10.5); Carbon Dioxide 26 mmol/L (22-29); Chloride 101 mmol/L (98-107); Globulin 2.8 g/dL (1.3-4.6); Glomerular Filtration Rate 132.8 mL/min (90-130); Glucose 100 mg/dL (65-115); Magnesium 1.8 mg/dL (1.7-2.3); Osmolality Calculated 276 mOsm/kg (285-295); Potassium 4.3 mmol/L (3.5-5.1); Sodium 135 mmol/L (136-145); Total Bilirubin 0.3 mg/dL (0.15-1.2); Total Protein 7.1 g/dL (6.6-8.7)
[2021-07-15 11:17] LABS: Lipase 30 U/L (13-60)
[2021-07-15 11:24] LABS: Procalcitonin 0.04 ng/mL (0-0.5)
[2021-07-15] MEDS: dicyclomine 10 mg Capsule PO (11:25)
--- NOTE | 2021-07-15 11:50 | PM.PN ---
Subjective Subjective: Interval history: The patient says she feels about the same. She still has not had a bowel movement. Vitals/I&O/Wt Last Vital Signs Temp 97.9 F 07/15/21 08:00 Pulse 68 07/15/21 08:00 Resp 18 07/15/21 08:43 BP 134/84 07/15/21 08:00 Pulse Ox 98 07/15/21 08:00 07/14/21 07/15/21 07/15/21 22:59 06:59 14:59 Intake Total 1150 / 1531.25 381.25 / 1531.25 480 / 480 Balance 1150 / 1531.25 381.25 / 1531.25 480 / 480 Weight last 48 hrs Weight 156 lb 6 oz Weight 156 lb 6 oz Weight 140 lb Physical Exam Narrative: EXAM NARRATIVE: No significant changes with the abdomen. Data : 07/15/21 09:28 07/15/21 09:28 Other Labs: Laboratory Tests 07/14/21 08:05 H. pylori IgG Antibody Negative A&P Assessment and plan (1) Abdominal pain: The patient's diet has been changed and she has been started on some medication for IBS symptoms. MRCP was negative. Status: Acute Qualifiers: Abdominal location: upper abdomen, unspecified Qualified Code(s): R10.10 - Upper abdominal pain, unspecified (2) History of peptic ulcer disease: Serum Helicobacter antibody is negative. Status: Acute Attestations Medical Necessity Statement*: See admitting service's notation. Coding Level of Care Code Acute Production Expediter for [facility] Nigel Diagnoses Abdominal pain R10.10 Abdominal location: upper abdomen, unspecified History of peptic ulcer disease Z87.11
--- NOTE | 2021-07-15 12:32 | PM.PN ---
Subjective Subjective: Interval history: Patient was seen this morning, she tells me that her abdomen is still bloated, she does have persistent epigastric pain, no nausea, no vomiting, she has not had a bowel movement Vitals/I&O/Wt Last Vital Signs Temp 98.0 F 07/15/21 12:00 Pulse 69 07/15/21 12:00 Resp 17 07/15/21 12:00 BP 145/97 07/15/21 12:00 Pulse Ox 97 07/15/21 12:00 07/14/21 07/15/21 07/15/21 22:59 06:59 14:59 Intake Total 1150 / 1150 381.25 / 1531.25 480 / 480 Balance 1150 / 1150 381.25 / 1531.25 480 / 480 Weight last 48 hrs Weight 70.931 kg Weight 70.931 kg Weight 63.503 kg Physical Exam Const: COMMON NORMALS: no acute distress and patient oriented x3 Neck/C-Spine: COMMON NORMALS: no JVD Resp: COMMON NORMALS: normal respiratory effort, No retractions, No use of accessory muscles and clear to auscultation bilaterally AUSCULTATION: clear to auscultation bilaterally Cardio: COMMON NORMALS: no JVD, regular rate, regular rhythm, S1 normal heart sound present and S2 normal heart sound present RATE: regular rate RHYTHM: regular rhythm HEART SOUNDS: S1 normal heart sound present and S2 normal heart sound present GI: COMMON NORMALS: Soft to palpation, No hepatosplenomegaly present, no masses and no bruits INSPECTION: Yes normal to inspection and Yes abdominal distension AUSCULTATION: Yes normoactive bowel sounds PALPATION: Yes Soft to palpation, Yes Tenderness to palpation present (GI) (Generalized) and Yes No hepatosplenomegaly present Extremity: COMMON NORMALS: capillary refill normal, no clubbing, cyanosis or edema, no calf tenderness and no pedal edema Neuro: COMMON NORMALS: patient oriented x3 Psych: COMMON NORMALS: mental status grossly normal Data : 07/15/21 09:28 07/15/21 09:28 A&P Assessment and plan (1) Abdominal pain: -Etiology possibly irritable bowel, small bowel bacterial overgrowth, celiac disease -MRCP no acute findings -H. pylori negative -Trend liver markers, lipase, lactic acid, within normal limits -Patient is up and moving although she has abdominal pain, but abdomen is distended -Dilaudid for pain -Continue IV fluids -Continue bowel regimen, MiraLAX, Colace -Transition to GI soft diet -Increase Protonix to 40 twice daily, add Carafate -Can consider a trial of dicyclomine, and antibiotics based on clinical response -General surgery on consult -Full code -Lovenox for DVT prophylaxis Severe, persistent over the last couple of days and not relieved with oral pain medications. With elevation in lipase noted pancreatitis is in the differential although no findings on CT imaging did suggest and current lipase is normal. She does have numerous small low-attenuation liver lesions described by radiology as cysts or biliary hematomas. LFTs are normal. She has a left adnexal cyst but that is not in the area where she is having the pain. Referred pain is possible but just seems less likely. Given her history of renal artery stenosis, difficult to control hypertension and hyperlipidemia, concerned about abdominal angina, ischemia. Also within the differential is recurrent peptic ulcer disease, esophagitis, ileitis, among others. Status: Acute Qualifiers: Abdominal location: upper abdomen, unspecified Qualified Code(s): R10.10 - Upper abdominal pain, unspecified (2) Elevated lipase: Present on 07/10/2021 to around 1000 Status: Acute (3) Renal artery stenosis: Status: Chronic (4) HTN (hypertension): Historically with diffic. Normally on what sounds like amlodipine, losartan, propranolol and spironolactone ult to treat hypertension secondary to above however blood pressures lately have been at lower range of normal Status: Chronic Qualifiers: Hypertension type: unspecified Qualified Code(s): I10 - Essential (primary) hypertension (5) Hyperlipidemia: Chronically on statin Status: Chronic Qualifiers: Hyperlipidemia type: unspecified Qualified Code(s): E78.5 - Hyperlipidemia, unspecified (6) Migraine headache: Chronically on Aimovig which she started 2 months ago with good result Status: Chronic Qualifiers: Migraine type: without aura Status migrainosus presence: without status migrainosus Intractability: intractable Qualified Code(s): G43.019 - Migraine without aura, intractable, without status migrainosus (7) GERD (gastroesophageal reflux disease): Chronically on twice daily PPI in the form of Protonix which does not always seem to help as much as it used to. Reports history of ulcers in the past Status: Chronic Qualifiers: Esophagitis presence: esophagitis presence not specified Qualified Code(s): K21.9 - Gastro-esophageal reflux disease without esophagitis (8) COVID-19 vaccine series started: Received first dose of Madonna on July 03 Status: Acute (9) COVID-19 laura castellanosmaxx: Status: Chronic (10) Syncope: -Does describe a syncopal episode -Sound like vasovagal syncope with her pain and nausea -However given her young age we will do an appropriate work-up -Troponin, BMP, TSH, EKG within normal limits -cardiac echo ejection fraction 60%, no regional wall motion abnormalities -carotid artery ultrasound Status: Acute Additional A&P Information Lovenox for DVT prophylaxis Supportive care otherwise Anticipate discharge home with outpatient follow-up Full code Attestations Medical Necessity Statement*: Patient requires hospitalization for persistent abdominal pain Coding Level of Care Code Acute Paper Products Inspector for [facility] Diagnoses Abdominal pain R10.10 Abdominal location: upper abdomen, unspecified Elevated lipase R74.8 Renal artery stenosis I70.1 HTN (hypertension) I10 Hypertension type: unspecified Hyperlipidemia E78.5 Hyperlipidemia type: unspecified Migraine headache G43.019 Migraine type: without aura Status migrainosus presence: without status migrainosus Intractability: intractable GERD (gastroesophageal reflux disease) K21.9 Esophagitis presence: esophagitis presence not specified COVID-19 vaccine series started Z23 COVID-19 laura vuong B94.8 Syncope R55
[2021-07-15] MEDS: sucralfate 1 gm/10 mL Oral Liq UDC PO (13:13)
[2021-07-15] MEDS: D5-NS 0.45% + KCL 20 mEq 20 MEQ/1,000 ML BAG 75 MEQ IV (15:49)
[2021-07-15] MEDS: enoxaparin 40 mg/0.4 mL Syringe SUBCUT (16:56)
[2021-07-15] MEDS: temazepam 15 mg Capsule PO (20:18)
[2021-07-15] MEDS: sennosides 8.6 mg Tablet 17.2 MG PO (20:18)
[2021-07-16] VITALS: BP 142/88; PULSE 91; RESP 20; TEMP 36.4; O2SAT 99
[2021-07-16] MEDS: sucralfate 1 gm/10 mL Oral Liq UDC PO (00:10)
[2021-07-16 01:33] VITALS: RESP 18; O2SAT 97
[2021-07-16] MEDS: HYDROmorphone 1 mg/mL INJ 1 mL 0.5 MG IVP (01:33)
[2021-07-16] MEDS: D5-NS 0.45% + KCL 20 mEq 20 MEQ/1,000 ML BAG 75 MEQ IV (02:16)
[2021-07-16] MEDS: dicyclomine 10 mg Capsule PO ×2 (03:51→10:01)
[2021-07-16 03:54] VITALS: BP 146/83; PULSE 79; RESP 22; TEMP 36.6; O2SAT 99
[2021-07-16] MEDS: pantoprazole DR 40 mg Tablet PO (05:35)
[2021-07-16] MEDS: ondansetron 2 mg/ML SDV 2 mL 4 MG IVP (05:35)
[2021-07-16 05:46] LABS: Basophils # 0.1 10^3/uL (0.0-0.1); Eosinophils # 0.3 10^3/uL (0.0-0.8); Eosinophils % 5.3 %; Hematocrit 40.1 % (37.0-47.0); Hemoglobin 13.1 g/dL (11.5-15.3); Lymphocytes # 1.7 10^3/uL (0.8-4.8); Lymphocytes % 29.6 %; Mean Corpuscular HGB Conc 32.7 g/dL (30.0-36.0); Mean Corpuscular Hemoglobin 30.6 pg (28.0-34.0); Mean Corpuscular Volume 93.7 fl (81-99); Mean Platelet Volume 11.1 fL (7.4-10.4); Monocytes # 0.7 10^3/uL (0.2-0.9); Monocytes % 11.2 %; Neutrophils # 3.09 10^3/uL (1.8-7.7); Neutrophils % 52.7 %; Nucleated Red Blood Cells % 0 %; Platelet Count 314 10^3/cmm (130-400); Red Blood Count 4.28 10^6/uL (4.1-5.3); Red Cell Distribution Width 11.9 % (12.1-15.1); White Blood Count 5.9 10^3/uL (4.0-10.0)
[2021-07-16 06:02] LABS: Procalcitonin 0.03 ng/mL (0-0.5)
--- NOTE | 2021-07-16 06:13 | PM.PN ---
Subjective Subjective: Interval history: The patient had a bowel movement yesterday and thinks her abdomen went down a little bit. She still having all of the other symptoms that she was having before, however. She says it is okay to change the milk of magnesia to as needed for now. Vitals/I&O/Wt Last Vital Signs Temp 97.8 F 07/16/21 03:54 Pulse 79 07/16/21 03:54 Resp 22 H 07/16/21 03:54 BP 146/83 07/16/21 03:54 Pulse Ox 99 07/16/21 03:54 07/15/21 07/15/21 07/16/21 14:59 22:59 06:59 Intake Total 1480 / 2263.75 783.75 / 2263.75 Balance 1480 / 2263.75 783.75 / 2263.75 Weight last 48 hrs Weight 156 lb 6 oz Physical Exam Narrative: EXAM NARRATIVE: Abdomen seemingly a little less tender today. Data : 07/16/21 04:50 07/15/21 09:28 A&P Assessment and plan (1) Abdominal pain: Change milk of magnesia to as needed. Otherwise continue current management. Status: Acute Qualifiers: Abdominal location: upper abdomen, unspecified Qualified Code(s): R10.10 - Upper abdominal pain, unspecified Attestations Medical Necessity Statement*: See admitting service's notation. Coding Level of Care Code Acute Call Or Contact Centre Coach for [facility] Nigel Diagnoses Abdominal pain R10.10 Abdominal location: upper abdomen, unspecified
[2021-07-16 06:14] LABS: Alanine Aminotransferase 35 U/L (0-33); Albumin Level 4.2 g/dL (3.5-5.2); Alkaline Phosphatase 71 IU/L (35-105); Aspartate Amino Transferase 27 U/L (0-32); Blood Urea Nitrogen 3 mg/dL (6-20); C Reactive Protein 1.8 mg/L (0.0-4.9); Calcium 9.4 mg/dL (8.5-10.5); Carbon Dioxide 24 mmol/L (22-29); Chloride 101 mmol/L (98-107); Globulin 2.8 g/dL (1.3-4.6); Glomerular Filtration Rate 132.8 mL/min (90-130); Glucose 112 mg/dL (65-115); Lipase 31 U/L (13-60); Magnesium 1.7 mg/dL (1.7-2.3); Osmolality Calculated 281 mOsm/kg (285-295); Phosphorus 3.5 mg/dL (2.5-4.5); Sodium 137 mmol/L (136-145); Total Bilirubin 0.2 mg/dL (0.15-1.2)
[2021-07-16 06:39] LABS: Anion Gap 16.3 (5-19); Potassium 4.3 mmol/L (3.5-5.1)
[2021-07-16] MEDS: docusate sodium 100 mg Capsule 200 MG PO (07:46)
[2021-07-16 08:00] VITALS: BP 139/104; PULSE 95; RESP 18; TEMP 36.7; O2SAT 99
--- NOTE | 2021-07-16 10:51 | P.DS_ITS ---
Discharge Providers Date of Admission: 07/14/21 17:15 Date of Discharge: July 16, 2021 Attending Provider at Admission: Olga Anton MD Attending Provider at Discharge: Vitor Sorensen MD Primary Care Provider: Tunde Vargas Diagnoses at Discharge Discharge Diagnosis (1) Abdominal pain: Status: Acute Qualifiers: Abdominal location: upper abdomen, unspecified Qualified Code(s): R10.10 - Upper abdominal pain, unspecified Reason for Visit Reason for Visit: STOMACH/BACK PAIN WORSENING Hospital Course Hospital Course This is a 45-year-old female with a past medical history of chronic abdominal pain, history of peptic ulcer disease, history of renal artery stenosis, hypertension, hyperlipidemia, migraines, GERD, who presents to due to abdominal pain and syncopal episode For her abdominal pain, CT scan of the out of pelvis had no acute findings, MRCP no acute findings, H. pylori negative, her lipase in the emergency room a few days ago was 1000, it was normal throughout her hospitalization, no significant transaminitis, she remained afebrile. General surgery was consulted, no acute interventions. Patient symptomatology significant improved with dicyclomine, and bowel regimen, her diet was slowly advanced, she tolerated well. Thus likely patient's symptomatology is associated with irritable bowel syndrome, I have discharged her on dicyclomine, instructions to start a FODMAP diet, Protonix twice daily, Carafate as needed, and follow-up with GI service in [facility]. Her celiac panel is pending on discharge For her syncopal episodes, sounded a lot like vasovagal syncope, related to her nausea and pain, EKG within normal limits, troponins within normal limits, cardiac echo within normal limits, her carotid artery ultrasound is pending on discharge Physical Exam Const: COMMON NORMALS: no acute distress and patient oriented x3 Resp: COMMON NORMALS: normal respiratory effort, No retractions, No use of accessory muscles and clear to auscultation bilaterally AUSCULTATION: clear to auscultation bilaterally Cardio: COMMON NORMALS: regular rate, regular rhythm, S1 normal heart sound present and S2 normal heart sound present RATE: regular rate RHYTHM: regular rhythm HEART SOUNDS: S1 normal heart sound present and S2 normal heart sound present GI: COMMON NORMALS: Normal to inspection, nondistended, normoactive bowel sounds present, Soft to palpation and non-tender PALPATION: Yes Soft to palpation Extremity: COMMON NORMALS: no pedal edema Neuro: COMMON NORMALS: patient oriented x3 Psych: COMMON NORMALS: mental status grossly normal Discharge Data Data Completed and Pending: Completed Studies During Hospitalization Category Date Time Status CT abdomen pelvis w con* [id number] Urge nt Cat Scan 07/13/21 15:[address] angio abdomen pelvis [id number] Routi ne Cat Scan 07/14/21 06:00 Completed MR MRCP [id number] Rou lei MRI 07/14/21 14:30 Completed CV. echo complete * [id number] Routine Ultrasound 07/15/21 06:00 Completed Pending at discharge Category Date Time Status C Reactive Protei n AM LABS Lab 07/17/21 04:00 Ordered Celiac Disease Di agniostic Olve Stat Lab 07/15/21 12:34 Received Complete Blood Co unt w/Auto AM LABS Lab 07/17/21 04:00 Ordered Comprehensive Met abolic Panel AM LA BS Lab 07/17/21 04:00 Ordered Lipase AM LABS Lab 07/17/21 04:00 Ordered Magnesium AM LABS Lab 07/17/21 04:00 Ordered Phosphorus AM LAB S Lab 07/17/21 04:00 Ordered Procalcitonin AM LABS Lab 07/17/21 04:00 Ordered CV carotid duplex BI* [id number] Routine Ultrasound 07/15/21 06:00 Taken Labs from last 24 hours 07/16/21 07/16/21 07/15/21 04:50 04:50 09:28 WBC 5.9 RBC 4.28 Hgb 13.1 Hct 40.1 MCV 93.7 MCH 30.6 MCHC 32.7 RDW 11.9 L Plt Count 314 MPV 11.1 H Neut % (Auto) 52.7 Lymph % (Auto) 29.6 [place] % (Auto) 11.2 Eos % (Auto) 5.3 Baso % (Auto) 1.0 Neut # (Auto) 3.09 Lymph # (Auto) 1.7 [place] # (Auto) 0.7 Eos # (Auto) 0.3 Baso # (Auto) 0.1 Nucleated RBC % (a uto) 0 Nucleated RBCs # 0.0 Sodium 137 Potassium 4.3 Chloride 101 Carbon Dioxide 24 Anion Gap 16.3 BUN 3 L Creatinine 0.5 GFR Calculation 132.8 H Glucose 112 Calculated Osmolal ity 281 L Calcium 9.4 Phosphorus 3.5 Magnesium 1.7 Total Bilirubin 0.2 AST 27 ALT 35 H Alkaline Phosphata se 71 C-Reactive Protein 1.8 Total Protein 7.0 Albumin 4.2 Globulin 2.8 Lipase 31 30 Procalcitonin 0.03 0.04 IgA Tiss Transglutamin IgG Tiss Transglutamin IgA Anti-Gliadin IgG E ANATOLY Res Anti-Gliad IgA JUAN JOSÉ SA Res 07/14/21 14:57 WBC RBC Hgb Hct MCV MCH MCHC RDW Plt Count MPV Neut % (Auto) Lymph % (Auto) [place] % (Auto) Eos % (Auto) Baso % (Auto) Neut # (Auto) Lymph # (Auto) [place] # (Auto) Eos # (Auto) Baso # (Auto) Nucleated RBC % (a uto) Nucleated RBCs # Sodium Potassium Chloride Carbon Dioxide Anion Gap BUN Creatinine GFR Calculation Glucose Calculated Osmolal ity Calcium Phosphorus Magnesium Total Bilirubin AST ALT Alkaline Phosphata se C-Reactive Protein Total Protein Albumin Globulin Lipase Procalcitonin IgA Pending Tiss Transglutamin IgG Pending Tiss Transglutamin IgA Pending Anti-Gliadin IgG E ANATOLY Res Pending Anti-Gliad IgA JUAN JOSÉ SA Res Pending Vitals: Last Vital Signs Temp 98.1 F 07/16/21 08:00 Pulse 95 07/16/21 08:00 Resp 18 07/16/21 08:00 BP 139/104 07/16/21 08:00 Pulse Ox 99 07/16/21 08:00 Discharge Plan Discharge Patient Disposition: Home Condition: Stable Prescriptions: New dicyclomine 10 mg Capsule 10 mg PO Q8H PRN (Reason: abdominal Spasms) 30 Days Qty: 90 RF: 0 polyethylene glycol 3350 17 gram Powder In Packet 17 g PO DAILY PRN (Reason: Constipation) 30 Days Qty: 30 RF: 0 docusate sodium 100 mg Capsule 200 mg PO BID 30 Days Qty: 120 RF: 0 pantoprazole 40 mg Tablet,Delayed Release (Dr/Ec) 40 mg PO Q12H 30 Days Qty: 60 RF: 0 sucralfate 100 mg/mL Suspension 1 g PO Q12H PRN (Reason: Abdominal Discomfort) 30 Days Qty: 1000 RF: 0 simethicone [Infants Simethicone] 40 mg/0.6 mL Drops,Suspension 40 mg PO QID PRN (Reason: Flatulence) 30 Days Qty: 30 RF: 0 Continued amlodipine 10 mg tablet 10 mg PO BEDTIME RF: 0 pantoprazole [Protonix] 40 mg tablet,delayed release (DR/EC) 40 mg PO BID RF: 0 atorvastatin 40 mg tablet 40 mg PO BEDTIME RF: 0 cholecalciferol (vitamin D3) 125 mcg (5,000 unit) tablet 125 mcg PO QAM RF: 0 Super B Complex Tablet 1 tab PO QAM RF: 0 Pristiq 50 mg Tablet Extended Release 24 Hr 50 mg PO DAILY RF: 0 Aimovig Autoinjector 70 mg/mL Auto-Injector 70 mg SUBCUT Q30D RF: 0 acetaminophen [Tylenol Extra Strength] 500 mg Tablet 1,000 mg PO Q4H PRN (Reason: Pain) RF: 0 L-Glutamine 500 mg Tablet 500 mg PO QAM RF: 0 spironolactone 50 mg Tablet 50 mg PO QAM RF: 0 propranolol 80 mg tablet See Rx Instructions .ROUTE .COMPLEX RF: 0 oxycodone 5 mg capsule 5 mg PO Q4H PRN (Reason: pain) Qty: 14 RF: 0 ondansetron HCl [Zofran] 4 mg tablet 4 mg PO Q8H PRN (Reason: nausea and vomiting) 5 Days RF: 0 Discharge Orders: Discharge Order (Routine); Ordered 07/16/21 Ordered By: Vitor Sorensen Referrals: Tunde Vargas [Primary Care Provider] - 1 week Discharge Diet: As Directed Discharge Activity: Resume usual activity Patient Instructions: Irritable Bowel Syndrome (DC), Opioid Safety Activity Restrictions/Additional Instructions: -Please follow-up with gastroenterology service at [facility] -For irritable bowel syndrome use dicyclomine as prescribed -Continue Protonix -Carafate as needed -Simethicone for bloating Follow-up with primary care provider in 1 week -If you have recurrent syncopal episodes please go to emergency room Discharge Attestations Time Spent in Discharge Care*: less than 30 min Quality Metrics Clinical Quality Measures During this hospital stay, did patient experience: None Coding Level of Care Code Acute Chg FW DC note Diagnoses Abdominal pain R10.10 Abdominal location: upper abdomen, unspecified
[2021-07-16 13:01] VITALS: BP 139/104; PULSE 95; RESP 18; TEMP 36.7; O2SAT 99
[2021-07-19 02:18] LABS: Immunoglobulin A 117 mg/dL (47-310)
[2021-07-22 03:36] LABS: Tissue Transglutaminase IgA Ab <1 U/mL; Tissue transglutaminase Ab.IgG <1 U/mL
[2021-07-23 16:52] LABS: Gliadin Ab.IgA 1 U (<20); Gliadin Ab.IgG <1 U (<20)
== END 2021-07-16 13:01 | disposition home or self-care (01) ==
LOC: ER 17:04 → MEDSURG 19:27
PROVIDERS: Physician Assistant; Surgery; Admitting Provider Hospitalist; Emergency Provider Emergency Medicine; PCP Physician Assistant Medical; Visit Provider Family Medicine
DX: R10.10 Upper abdominal pain, unspecified (principal); Z87.11 Personal history of peptic ulcer disease; I10 Essential (primary) hypertension; E78.5 Hyperlipidemia, unspecified; K21.9 Gastro-esophageal reflux disease without esophagitis; R74.8 Abnormal levels of other serum enzymes; I70.1 Atherosclerosis of renal artery; G43.019 Migraine without aura, intractable, without status migrainosus; Z23 Encounter for immunization; B94.8 Sequelae of other specified infectious and parasitic diseases; R55 Syncope and collapse; Z86.16 Personal history of COVID-19; Z83.3 Family history of diabetes mellitus; Z82.49 Family history of ischemic heart disease and other diseases of the circulatory system; Z87.891 Personal history of nicotine dependence
CPT/HCPCS: 36415; 74174; 74177; 74181; 80053; 81003; 82784; 83516; 83605; 83690; 83735; 84100; 84145; 84443; 84484; 84703; 85025; 86140; 86677; 93005; 93306; 93880; 96365; 96367; 96372; 96375; 96376; 99285; G0378; J0696; J1170; J1650; J2270; J2405; J3490; J7030; Q9967; S0030

== ENCOUNTER → 2021-11-04 09:28 | Outpatient (BNVA) | payer MEDICAID, SELFPAY | PROVIDERS: PCP Physician Assistant Medical; Visit Provider Emergency Medicine | DX: J02.9 Acute pharyngitis, unspecified (principal); R11.0 Nausea; J06.9 Acute upper respiratory infection, unspecified; J40 Bronchitis, not specified as acute or chronic | CPT/HCPCS: 87071; 87880 ==

== ENCOUNTER → 2021-12-17 09:25 | Outpatient (BNVA) | payer MEDICAID, SELFPAY | PROVIDERS: PCP Physician Assistant Medical; Visit Provider Nurse Practitioner Family | DX: R06.02 Shortness of breath (principal) | CPT/HCPCS: 71046 ==

== ENCOUNTER → 2021-12-28 11:00 | Outpatient (BNVA) | payer MEDICAID, SELFPAY | PROVIDERS: PCP Physician Assistant Medical; Visit Provider Nurse Practitioner Family | DX: S99.911A Unspecified injury of right ankle, initial encounter (principal); X58.XXXA Exposure to other specified factors, initial encounter | CPT/HCPCS: 73610 ==

== ENCOUNTER → 2023-01-03 13:34 | Outpatient (BNVA) | payer MEDICAID, SELFPAY | PROVIDERS: PCP Nurse Practitioner Family; Visit Provider Emergency Medicine | DX: S60.221A Contusion of right hand, initial encounter (principal); W19.XXXA Unspecified fall, initial encounter | CPT/HCPCS: 73130 ==

== ENCOUNTER → 2023-03-29 16:53 | Outpatient (BNVA) | payer MEDICAID, SELFPAY | PROVIDERS: PCP Family Medicine; Visit Provider Nurse Practitioner Family | DX: R07.9 Chest pain, unspecified (principal); I10 Essential (primary) hypertension | CPT/HCPCS: 71046 ==

== ENCOUNTER 2023-03-29 18:50 | Emergency (ER) | payer OTHER, MEDICAID, SELFPAY ==
[2023-03-29] VITALS (12 sets, daily range): BP systolic 141–206; BP diastolic 87–127; PULSE 73–90; RESP 13–23; TEMP 36.4; O2SAT 94–97; BMI 29.2
--- NOTE | 2023-03-29 18:51 | ECG_ITS ---
[facility] Test Date: 2023-03-29 Pat Name: Olivia Adams Department: Room: Gender: Female Pattern Drafter: : 1975 Requested By: Nilton Redman Order Number: [id number] Maria Isabel MD: Layo Loera M.D. Measurements Intervals [place] Rate: 73 P: 148 MT: 173 QRS: -23 QRSD: 84 T: 148 QT: 379 QTc: 418 Interpretive Statements ECTOPIC ATRIAL RHYTHM POSSIBLE LEFT ATRIAL ENLARGEMENT [-0.1mV P-WAVE IN V1/V2] BORDERLINE LEFT AXIS DEVIATION [QRS AXIS < -20] NONSPECIFIC T-WAVE ABNORMALITY Compared to ECG 07/14/2021 17:26:47 Ectopic atrial rhythm now present T-wave abnormality now present Sinus rhythm no longer present Electronically Signed On 03-30-2023 11:54:02 CDT by Layo Loera M.D. [id number]
--- NOTE | 2023-03-29 19:10 | CTR_ITS ---
PROCEDURE INFORMATION: Exam: CTA Chest With Contrast Exam date and time: 03/29/2023 8:07 PM Age: 47 years old Clinical indication: Pain; Cough and shortness of breath; Chest pressure; Prior surgery; Surgery date: 6+ months; Surgery type: Gb; Patient HX: Cp with cough and SOB TECHNIQUE: Imaging protocol: Computed tomographic angiography of the chest with contrast. 3D rendering (Not supervised by radiologist): MIP and/or 3D reconstructed images were created by the technologist. Radiation optimization: All CT scans at this facility use at least one of these dose optimization techniques: automated exposure control; mA and/or kV adjustment per patient size (includes targeted exams where dose is matched to clinical indication); or iterative reconstruction. Contrast material: OMNI 350; Contrast volume: 62 ml; Contrast route: INTRAVENOUS (IV); REPORTING DATA: Count of CT and Cardiac NM exams in prior 12 months: This patient has received 0 known CTs and 0 known cardiac nuclear medicine studies in the 12 months prior to the current study. COMPARISON: CR XR chest 2V* [id number] 03/29/2023 5:01 PM RADIATION DOSE METRICS: Total DLP (mGy-cm): 345 FINDINGS: Pulmonary arteries: Normal. No pulmonary emboli. Aorta: Unremarkable. No aortic aneurysm. No aortic dissection. Lungs: Unremarkable. No consolidation. No masses. Pleural spaces: Unremarkable. No pneumothorax. No pleural effusion. Heart: Unremarkable. No cardiomegaly. No pericardial effusion. Coronary arteries: Coronary artery atherosclerotic calcifications. Lymph nodes: Unremarkable. No enlarged lymph nodes. Bones/joints: Unremarkable. No acute fracture. Soft tissues: Cholecystectomy CT/CT angio chest PE protcl [id number] IMPRESSION: 1. Negative for pulmonary embolus. 2. Coronary artery atherosclerotic calcifications. 3. Cholecystectomy.
--- NOTE | 2023-03-29 19:11 | ED_ITS ---
HPI - Chest Pain General: Chief Complaint: Chest Pain Stated Complaint: Chest Pains Time Seen by Provider: 03/29/23 19:00 Source: patient Mode of arrival: ambulatory Limitations: no limitations History of Present Illness: 47-year-old female who she has been having some chest pain since yesterday states pain is a sharp pressure type pain in the center of her chest that radiates straight to her back she states it is worsened throughout the day today she is also been hypertensive her blood pressure here is 206/126 she takes lisinopril at home. She states she recently got over bronchitis she is diag nosed week ago finished her steroids and antibiotic denies any dyspnea or cough. No history of coronary artery disease. Associated symptoms: Deny abdominal pain, dyspnea or fever(s) Review of Systems Const: Denies: fever(s) Eyes: Denies: change in vision Card: Reports: chest pain Resp: Denies: dyspnea GI: Denies: abdominal pain Musc: Denies: neck pain Neuro: Reports: headache(s) PFS ED PFSH: Medical History 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 COVID-19 long hauler Prolonged loss of taste and smell, fatigue, shortness of breath, among other symptoms COVID-19 vaccine series started 1st Moderna dose 07/03/2021 GERD (gastroesophageal reflux disease) History of peptic ulcer disease History of shingles 3 times HTN (hypertension) Hyperlipidemia Migraine headache Renal artery stenosis Surgical History H/O section x 1 H/O knee surgery Right arthroscopy x 4 H/O shoulder surgery Right biceps tendon tear repair H/O: hysterectomy / Right oophorectomy History of colonoscopy 2019 -- normal History of esophagogastroduodenoscopy (EGD) 2019 -- ulcers S/P cholecystectomy Family History Grandfather Diabetes Grandmother Diabetes Mother Hypoglycemia Other CHF (congestive heart failure) COPD (chronic obstructive pulmonary disease) Hypertension Denies family history of Cancer Social History Smoking and tobacco status: former smoker Quit status (tobacco): has quit using tobacco Year quit tobacco: 2019 Former quit date comment: Quit after she was diagnosed with COVID-19 Alcohol intake: never Substance/Drug Use: never Current gender identity: Female Female Reproductive History: Spontaneous abortions: No Physical Exam Const: COMMON NORMALS: no acute distress, patient oriented x3 and healthy appearing HENMT: COMMON NORMALS: normocephalic and atraumatic HEAD & SCALP: normocephalic and atraumatic Eye: COMMON NORMALS: conjunctivae normal CONJUNCTIVA: Yes conjunctivae normal Neck/C-Spine: COMMON NORMALS: full ROM and supple Chest: COMMONS NORMALS: normal inspection of the chest and normal palpation of entire chest wall Resp: COMMON NORMALS: normal respiratory effort, No retractions, No use of accessory muscles and clear to auscultation bilaterally AUSCULTATION: clear to auscultation bilaterally Cardio: COMMON NORMALS: regular rate, regular rhythm and No murmurs present (Cardio) RATE: regular rate RHYTHM: regular rhythm GI: INSPECTION: Yes normal to inspection Extremity: COMMON NORMALS: normal to inspection and full ROM Neuro: COMMON NORMALS: patient oriented x3, moves all extremities and no focal motor deficits Psych: COMMON NORMALS: mental status grossly normal, Normal thought process present and cooperative THOUGHT PROCESS: Normal thought process present Skin: COMMON NORMALS: no rashes or lesions noted and no wounds GENERAL SKIN EXAM: no rashes or lesions noted Course Vital Signs: Vital signs: Vital Signs Temperature 97.5 F L 03/29/23 19:02 Pulse Rate 78 03/29/23 22:26 Respiratory Rate 14 03/29/23 22:26 Blood Pressure 141/100 03/29/23 22:26 Pulse Oximetry 96 03/29/23 22:26 Oxygen Delivery Me thod Room Air 03/29/23 22:25 MDM - Chest Pain Medical Decision Making Patient presents here with chest pains atypical in nature her troponins here are normal no signs of acute coronary syndrome CTA is normal no PE no dissection she is stable for discharge she does have hypertension we will start her on metoprolol she is to follow-up with PCP and return if worsening. Medical Records I reviewed the patient's medical records. Lab Data I reviewed the patient's lab results. 03/29/23 19:20 03/29/23 19:20 Radiology Impressions Chest CTA 03/29/23 19:10 IMPRESSION: 1. Negative for pulmonary embolus. 2. Coronary artery atherosclerotic calcifications. 3. Cholecystectomy. Laboratory Results WBC 11.0 10^3/uL (4.0-10.0) H 03/29/23 19:20 RBC 4.18 10^6/uL (4.1-5.3) 03/29/23 19:20 Hgb 12.6 g/dL (11.5-15.3) 03/29/23 19:20 Hct 36.8 % (37.0-47.0) L 03/29/23 19:20 MCV 88.0 fl (81-99) 03/29/23 19:20 MCH 30.1 pg (28.0-34.0) 03/29/23 19: MCHC 34.2 g/dL (30.0-36.0) 03/29/23 19:20 RDW 13.0 % (12.1-15.1) 03/29/23 19:20 Plt Count 379 10^3/cmm (130-400) 03/29/23 19:20 MPV 10.4 fL (7.4-10.4) 03/29/23 19:20 Neut % (Auto) 74.9 % 03/29/23 19:20 Lymph % (Auto) 17.2 % 03/29/23 19:20 [place] % (Auto) 6.8 % 03/29/23 19:20 Eos % (Auto) 0.3 % 03/29/23 19:20 Baso % (Auto) 0.2 % 03/29/23 19:20 Neut # (Auto) 8.21 10^3/uL (1.8-7.7) H 03/29/23 19:20 Lymph # (Auto) 1.9 10^3/uL (0.8-4.8) 03/29/23 19:20 [place] # (Auto) 0.8 10^3/uL (0.2-0.9) 03/29/23 19:20 Eos # (Auto) 0.0 10^3/uL (0.0-0.8) 03/29/23 19:20 Baso # (Auto) 0.0 10^3/uL (0.0-0.1) 03/29/23 19:20 Nucleated RBC % (auto) 0 % 03/29/23 19:20 Nucleated RBCs # 0.0 /100WBC 03/29/23 19:20 Sodium 137 mmol/L (136-145) 03/29/23 19:20 Potassium 3.9 mmol/L (3.5-5.1) 03/29/23 19:20 Chloride 102 mmol/L (98-107) 03/29/23 19:20 Carbon Dioxide 25 mmol/L (22-29) 03/29/23 19:20 Anion Gap 13.9 (5-19) 03/29/23 19:20 BUN 12 mg/dL (6-20) 03/29/23 19:20 Creatinine 0.4 mg/dL (0.5-0.9) L 03/29/23 19:20 GFR Calculation 170.4 mL/min (90-130) H 03/29/23 19:20 Glucose 87 mg/dL (65-115) 03/29/23 19:20 Calculated Osmolality 283 mOsm/kg (285-295) L 03/29/23 19:20 Calcium 8.7 mg/dL (8.5-10.5) 03/29/23 19:20 Total Bilirubin 0.2 mg/dL (0.15-1.2) 03/29/23 19:20 AST 16 U/L (0-32) 03/29/23 19:20 ALT 15 U/L (0-33) 03/29/23 19:20 Alkaline Phosphatase 53 U/L (35-105) 03/29/23 19:20 Troponin T Baseline 6 ng/L (0-10) 03/29/23 19:20 Troponin T 120 Minute 6.00 ng/L (0-10) 03/29/23 21:09 Delta Troponin T 0 ABS# (0-10) 03/29/23 21:09 NT-Pro-B Natriuret Pep 67 pg/mL (0-125) 03/29/23 19:20 Total Protein 6.6 g/dL (6.6-8.7) 03/29/23 19:20 Albumin 4.2 g/dL (3.5-5.2) 03/29/23 19:20 Globulin 2.4 g/dL (1.3-4.6) 03/29/23 19:20 Lipase 46 U/L (13-60) 03/29/23 19:20 EKG Data EKG 1: I personally reviewed and interpreted this EKG as follows: EKG interpretation date: 03/29/23 EKG interpretation time: 18:58 Interpretation: nsr hr [address] or t wave abnormalities qrs 84 qtc 404 Discharge Plan Discharge Patient Disposition: Home Clinical Impression: Chest pain, Hypertension Condition: Stable Prescriptions: New hydrocodone-acetaminophen 5-325 mg tablet 1 tab PO Q6H PRN (Reason: pain) Qty: 14 0RF metoprolol succinate 50 mg tablet extended release 24 hr 50 mg PO DAILY Qty: 30 0RF No Action cholecalciferol (vitamin D3) 125 mcg (5,000 unit) tablet 125 mcg PO QAM lisinopril 10 mg tablet 10 mg PO DAILY Rx Instructions: Can increase to 40 mg a day/ depending on BP sucralfate [Carafate] 1 gram tablet 1 g PO Q6H doxepin 25 mg capsule 25 mg PO DAILY Rx Instructions: increase to 2 at hs sumatriptan succinate 100 mg tablet See Rx Instructions PO .COMPLEX Rx Instructions: take 1 tab at onset of headache; if no relief, may repeat 1 tab after at least 2 hrs; max = 2 tabs/24 hrs PO [id number] [Fioricet] 50-300-40 mg capsule 1 cap PO Q8H PRN prednisone 10 mg tablet 30 mg PO DAILY 5 Days Qty: 15 0RF azithromycin 250 mg tablet See Rx Instructions PO .COMPLEX Qty: 6 0RF Rx Instructions: For 250 mg dose pack: take 500 mg today (day 1), then 250 mg for 4 days (days 2-5) PO fluticasone propionate [Flonase Allergy Relief] 50 mcg/actuation spray,suspension 2 spray intranasal DAILY Qty: 16 0RF Rx Instructions: administer into each nostril pantoprazole [Protonix] 40 mg tablet,delayed release (DR/EC) 40 mg PO BID Qty: 60 5RF vitamin B complex Tablet 1 tab PO QAM Aimovig Autoinjector 70 mg/mL Auto-Injector 70 mg SUBCUT Q30D Rx Instructions: (due 07/19/21) acetaminophen [Tylenol Extra Strength] 500 mg Tablet 1,000 mg PO Q4H PRN (Reason: Pain) Discharge Orders: Discharge ED (Routine); Ordered 03/29/23 Ordered By: Nilton Redman Referrals: Yvrose Oro MD [Primary Care Provider] - 1-3 days Discharge Diet: Advance as tolerated Discharge Activity: Resume usual activity Patient Instructions: Chest Pain (ED), Hypertension (ED) Coding Level of Care Code ED Real Estate Loan Officer for Jen Manning
[2023-03-29] MEDS: labetalol 5 mg/mL SDV 20mL 10 MG IVP (19:23)
[2023-03-29 19:34] LABS: Basophils % 0.2 %; Eosinophils % 0.3 %; Hematocrit 36.8 % (37.0-47.0); Hemoglobin 12.6 g/dL (11.5-15.3); Lymphocytes # 1.9 10^3/uL (0.8-4.8); Lymphocytes % 17.2 %; Mean Corpuscular HGB Conc 34.2 g/dL (30.0-36.0); Mean Corpuscular Hemoglobin 30.1 pg (28.0-34.0); Mean Platelet Volume 10.4 fL (7.4-10.4); Monocytes # 0.8 10^3/uL (0.2-0.9); Monocytes % 6.8 %; Neutrophils # 8.21 10^3/uL (1.8-7.7); Neutrophils % 74.9 %; Nucleated Red Blood Cells % 0 %; Platelet Count 379 10^3/cmm (130-400); Red Blood Count 4.18 10^6/uL (4.1-5.3)
[2023-03-29] MEDS: ondansetron 2 mg/ML SDV 2 mL 4 MG IVP ×2 (19:46→21:28)
[2023-03-29] MEDS: HYDROmorphone 1 mg/mL INJ 1 mL 0.5 MG IVP (19:47)
[2023-03-29 19:57] LABS: Troponin(5th) Baseline 6 ng/L (0-10)
[2023-03-29 20:06] LABS: Alanine Aminotransferase 15 U/L (0-33); Albumin Level 4.2 g/dL (3.5-5.2); Alkaline Phosphatase 53 U/L (35-105); Aspartate Amino Transferase 16 U/L (0-32); Blood Urea Nitrogen 12 mg/dL (6-20); Calcium 8.7 mg/dL (8.5-10.5); Carbon Dioxide 25 mmol/L (22-29); Chloride 102 mmol/L (98-107); Globulin 2.4 g/dL (1.3-4.6); Glomerular Filtration Rate 170.4 mL/min (90-130); Glucose 87 mg/dL (65-115); Lipase 46 U/L (13-60); NT Pro B Type Natriuretic Pept 67 pg/mL (0-125); Osmolality Calculated 283 mOsm/kg (285-295); Sodium 137 mmol/L (136-145); Total Bilirubin 0.2 mg/dL (0.15-1.2); Total Protein 6.6 g/dL (6.6-8.7)
[2023-03-29 20:08] LABS: Anion Gap 13.9 (5-19); Potassium 3.9 mmol/L (3.5-5.1)
[2023-03-29] MEDS: iohexol 350 mg/mL 500 mL Btl (per mL) IV (20:13)
[2023-03-29] MEDS: HYDROmorphone 1 mg/mL INJ 1 mL IVP (20:32)
--- NOTE | 2023-03-29 21:41 | ECG_ITS ---
[facility] Test Date: 2023-03-29 Pat Name: Olivia Adams Department: Room: Gender: Female Senior Java Data Architect: : 1975 Requested By: Nilton Redman Order Number: [id number] Maria Isabel MD: Layo Loera M.D. Measurements Intervals [place] Rate: 68 P: 68 ND: 201 QRS: 33 QRSD: 113 T: 55 QT: 412 QTc: 440 Interpretive Statements SINUS RHYTHM MODERATE INTRAVENTRICULAR CONDUCTION DELAY [110+ ms QRS DURATION] Compared to ECG 03/29/2023 18:58:53 Intraventricular conduction delay now present Ectopic atrial rhythm no longer present T-wave abnormality no longer present Electronically Signed On 03-30-2023 11:54:47 CDT by Layo Loera M.D. [email or web address]/store/[id number] f
[2023-03-29 21:44] LABS: Troponin 5 2HR Delta 0 ABS# (0-10)
[2023-03-29] MEDS: LORazepam 2 mg/mL INJ 1 mL 1 MG IVP (21:49)
== END 2023-03-29 22:32 | disposition home or self-care (01) ==
PROVIDERS: Emergency Provider Emergency Medicine; PCP Family Medicine
DX: R07.9 Chest pain, unspecified (principal); I10 Essential (primary) hypertension; Z87.891 Personal history of nicotine dependence; E78.5 Hyperlipidemia, unspecified
CPT/HCPCS: 71275; 80053; 83690; 83880; 84484; 85025; 93005; 96374; 96375; 96376; 99285; J1170; J2060; J2405; J3490; Q9967

== ENCOUNTER 2023-04-02 14:10 | Emergency (ER) | payer MEDICAID, SELFPAY ==
[2023-04-02 14:13] VITALS: BP 181/132; PULSE 98; RESP 18; TEMP 36.6; O2SAT 99; BMI 29.2
--- NOTE | 2023-04-02 14:29 | XR_ITS ---
WS: [id number] Portable AP upright chest, 04/02/2023 Clinical Data: dyspnea/cough Comparison: Two-view chest, 03/29/2023 Findings: No nodules, masses or effusions are seen. The heart is normal. The pulmonary vascularity is not increased. No pneumonia or pneumothorax is seen. XR/XR chest 1V portable [id number] Impression: Negative chest.
--- NOTE | 2023-04-02 14:30 | W.ED.HA ---
HPI - Headache General: Chief Complaint: Headache Stated Complaint: High BP, Chest Pain Time Seen by Provider: 04/02/23 14:28 Source: patient Mode of arrival: ambulatory History of Present Illness: 47-year-old female presents emergency room complaining of elevated blood pressure and headache. She has a history of renal artery stenosis she currently is on lisinopril no recent changes in her medications. She denies any chest pain or shortness of breath. No other complaints at this time no visual difficulties no focal neurologic deficits are noted. MD elicited complaint: headache Onset (ago): week(s) Location: frontal Quality & Timing: throbbing Exacerbating factors: none Relieving factors: nothing Associated symptoms: Deny chest pain, confusion, cough, diaphoresis, eye pain, eye redness, fever(s), lightheadedness, loss of vision, malaise, nausea, neck stiffness, numbness, paresthesias, photophobia, pre-syncope, rash, seizures, short of breath, sound sensitivity, syncope, vomiting or weakness Treatments prior to arrival: none Review of Systems Const: Denies: fever(s), chills, fatigue, malaise or diaphoresis ENMT: Denies: throat pain, ear or mastoid pain, nasal discharge or nasal congestion Card: Denies: chest pain, lightheadedness, syncope or pre-syncope Resp: Denies: dyspnea, productive cough or non-productive cough GI: Denies: abdominal pain, nausea or vomiting : Denies: flank pain, difficulty voiding, dysuria, urinary frequency or urinary urgency Musc: Denies: neck pain or back pain Skin/Breast: Denies: rash Neuro: Reports: headache(s); Denies: confusion PFSH ED PFSH: Medical History 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 COVID-19 long hauler Prolonged loss of taste and smell, fatigue, shortness of breath, among other symptoms COVID-19 vaccine series started 1st Moderna dose 07/03/2021 GERD (gastroesophageal reflux disease) History of peptic ulcer disease History of shingles 3 times HTN (hypertension) Hyperlipidemia Migraine headache Renal artery stenosis Surgical History H/O section x 1 H/O knee surgery Right arthroscopy x 4 H/O shoulder surgery Right biceps tendon tear repair H/O: hysterectomy / Right oophorectomy History of colonoscopy 2019 -- normal History of esophagogastroduodenoscopy (EGD) 2019 -- ulcers S/P cholecystectomy Family History Grandfather Diabetes Grandmother Diabetes Mother Hypoglycemia Other CHF (congestive heart failure) COPD (chronic obstructive pulmonary disease) Hypertension Denies family history of Cancer Social History Smoking and tobacco status: former smoker Quit status (tobacco): has quit using tobacco Year quit tobacco: 2019 Former quit date comment: Quit after she was diagnosed with COVID-19 Alcohol intake: never Substance/Drug Use: never Current gender identity: Female Female Reproductive History: Spontaneous abortions: No Physical Exam Const: GENERAL APPEARANCE: cooperative and comfortable ORIENTATION/CONSCIOUSNESS: Yes awake, Yes oriented to person, Yes oriented to place and Yes oriented to time HENMT: COMMON NORMALS: normocephalic, atraumatic and hearing grossly normal bilaterally HEAD & SCALP: normocephalic and atraumatic Eye: DIRECT OPHTHALMOSCOPY: No photophobia Resp: COMMON NORMALS: normal respiratory effort, No retractions, No use of accessory muscles and clear to auscultation bilaterally AUSCULTATION: clear to auscultation bilaterally Cardio: COMMON NORMALS: regular rate, regular rhythm and No murmurs present (Cardio) RATE: regular rate RHYTHM: regular rhythm GI: COMMON NORMALS: Soft to palpation and No hepatosplenomegaly present AUSCULTATION: Yes normoactive bowel sounds PALPATION: Yes Soft to palpation, No Tenderness to palpation present (GI), No Guarding due to palpation present (GI) and Yes No hepatosplenomegaly present Extremity: COMMON NORMALS: normal to inspection, capillary refill normal, no clubbing, cyanosis or edema, no calf tenderness and no pedal edema Neuro: SENSORIUM/ORIENTATION: Yes oriented to person, Yes oriented to place and Yes oriented to time Skin: COMMON NORMALS: no rashes or lesions noted GENERAL SKIN EXAM: no rashes or lesions noted Course Vital Signs: Vital signs: Vital Signs Temperature 98 F 04/02/23 14:13 Pulse Rate 85 04/02/23 16:46 Respiratory Rate 14 04/02/23 16:46 Blood Pressure 179/97 04/02/23 16:46 Pulse Oximetry 99 04/02/23 16:46 Oxygen Delivery Me thod Room Air 04/02/23 14:13 MDM - Headache Medical Decision Making Blood pressure improved with medications given. We will increase from metoprolol to 75 daily add amlodipine 5 mg daily continue her lisinopril kidney function is good. Have her follow-up with her primary care doctor within a week to reevaluate her blood pressure and her medication regimen return the emergency room if she has any worsening or symptoms. Medical Records I reviewed the patient's medical records. Lab Data I reviewed the patient's lab results. 04/02/23 16:00 04/02/23 15:01 Radiology Impressions Chest X-Ray 04/02/23 14:29 Impression: Negative chest. Laboratory Results WBC 7.7 10^3/uL (4.0-10.0) 04/02/23 16:00 Corrected WBC Cancelled 04/02/23 15:01 RBC 4.35 10^6/uL (4.1-5.3) 04/02/23 16:00 Hgb 13.1 g/dL (11.5-15.3) 04/02/23 16:00 Hct 39.5 % (37.0-47.0) 04/02/23 16:00 MCV 90.8 fl (81-99) 04/02/23 16:00 MCH 30.1 pg (28.0-34.0) 04/02/23 16:00 MCHC 33.2 g/dL (30.0-36.0) 04/02/23 16:00 RDW 12.5 % (12.1-15.1) 04/02/23 16:00 Plt Count 323 10^3/cmm (130-400) 04/02/23 16:00 MPV 10.1 fL (7.4-10.4) 04/02/23 16:00 Gran % Cancelled 04/02/23 15:01 Neut % (Auto) 68.4 % 04/02/23 16:00 Lymph % (Auto) 21.5 % 04/02/23 16:00 [place] % (Auto) 6.9 % 04/02/23 16:00 Eos % (Auto) 2.2 % 04/02/23 16:00 Baso % (Auto) 0.6 % 04/02/23 16:00 Neut # (Auto) 5.29 10^3/uL (1.8-7.7) 04/02/23 16:00 Lymph # (Auto) 1.7 10^3/uL (0.8-4.8) 04/02/23 16:00 [place] # (Auto) 0.5 10^3/uL (0.2-0.9) 04/02/23 16:00 Eos # (Auto) 0.2 10^3/uL (0.0-0.8) 04/02/23 16:00 Baso # (Auto) 0.1 10^3/uL (0.0-0.1) 04/02/23 16:00 Absolute Gran (auto) Cancelled 04/02/23 15:01 Nucleated RBC % (auto) 0 % 04/02/23 16:00 Nucleated RBCs # 0.0 /100WBC 04/02/23 16:00 Sodium 140 mmol/L (136-145) 04/02/23 15:01 Potassium 3.7 mmol/L (3.5-5.1) 04/02/23 15:01 Chloride 103 mmol/L (98-107) 04/02/23 15:01 Carbon Dioxide 25 mmol/L (22-29) 04/02/23 15:01 Anion Gap 15.7 (5-19) 04/02/23 15:01 BUN 11 mg/dL (6-20) 04/02/23 15:01 Creatinine 0.5 mg/dL (0.5-0.9) 04/02/23 15:01 GFR Calculation 131.7 mL/min (90-130) H 04/02/23 15:01 Glucose 103 mg/dL (65-115) 04/02/23 15:01 Calculated Osmolality 290 mOsm/kg (285-295) 04/02/23 15:01 Calcium 9.4 mg/dL (8.5-10.5) 04/02/23 15:01 Total Bilirubin 0.2 mg/dL (0.15-1.2) 04/02/23 15:01 AST 15 U/L (0-32) 04/02/23 15:01 ALT 14 U/L (0-33) 04/02/23 15:01 Alkaline Phosphatase 65 U/L (35-105) 04/02/23 15:01 Total Protein 6.8 g/dL (6.6-8.7) 04/02/23 15:01 Albumin 4.0 g/dL (3.5-5.2) 04/02/23 15: Globulin 2.8 g/dL (1.3-4.6) 04/02/23 15:01 Urine Color Yellow (Yellow) 04/02/23 15:43 Urine Appearance Cloudy (CLEAR) A 04/02/23 15:43 Urine pH 6.5 (5-7) 04/02/23 15:43 Ur Specific [place] 1.020 (1.005-1.030) 04/02/23 15:43 Urine Protein Neg (Negative) 04/02/23 15:43 Urine Glucose (UA) Norm (Normal) 04/02/23 15:43 Urine Ketones Negative (Negative) 04/02/23 15:43 Urine Blood Neg (Negative) 04/02/23 15:43 Urine Nitrate Negative (Negative) 04/02/23 15:43 Urine Bilirubin Neg (Negative) 04/02/23 15:43 Urine Urobilinogen Norm mg/dL (Negative) 04/02/23 15:43 Ur Leukocyte Esterase Negative (Negative) 04/02/23 15:43 Urine Opiates Screen Negative ng/mL (Negative) 04/02/23 15:43 Ur Barbiturates Screen Positive ng/mL (Negative) H 04/02/23 15:43 Ur Phencyclidine Scrn Negative ng/mL (Negative) 04/02/23 15:43 Ur Amphetamines Screen Negative ng/mL (Negative) 04/02/23 15:43 U Benzodiazepines Scrn Negative ng/mL (Negative) 04/02/23 15:43 Urine Cocaine Screen Negative ng/mL (Negative) 04/02/23 15:43 U Marijuana (THC) Screen Positive ng/mL (Negative) H 04/02/23 15:43 Discharge Plan Discharge Patient Disposition: Home Clinical Impression: HTN (hypertension), Renal artery stenosis Condition: Stable Prescriptions: New amlodipine 5 mg tablet 5 mg PO DAILY Qty: 30 0RF metoprolol succinate 50 mg tablet extended release 24 hr 75 mg PO DAILY Qty: 45 0RF Discontinued metoprolol succinate 50 mg tablet extended release 24 hr 50 mg PO DAILY Qty: 30 0RF No Action cholecalciferol (vitamin D3) 125 mcg (5,000 unit) tablet 125 mcg PO QAM lisinopril 10 mg tablet 10 mg PO DAILY Rx Instructions: Can increase to 40 mg a day/ depending on BP sucralfate [Carafate] 1 gram tablet 1 g PO Q6H doxepin 25 mg capsule 25 mg PO DAILY Rx Instructions: increase to 2 at hs sumatriptan succinate 100 mg tablet See Rx Instructions PO .COMPLEX Rx Instructions: take 1 tab at onset of headache; if no relief, may repeat 1 tab after at least 2 hrs; max = 2 tabs/24 hrs PO [id number]-ptyywubwrzjad-orzz [Fioricet] 50-300-40 mg capsule 1 cap PO Q8H PRN prednisone 10 mg tablet 30 mg PO DAILY 5 Days Qty: 15 0RF azithromycin 250 mg tablet See Rx Instructions PO .COMPLEX Qty: 6 0RF Rx Instructions: For 250 mg dose pack: take 500 mg today (day 1), then 250 mg for 4 days (days 2-5) PO fluticasone propionate [Flonase Allergy Relief] 50 mcg/actuation spray,suspension 2 spray intranasal DAILY Qty: 16 0RF Rx Instructions: administer into each nostril pantoprazole [Protonix] 40 mg tablet,delayed release (DR/EC) 40 mg PO BID Qty: 60 5RF spironolactone 50 mg tablet 50 mg PO DAILY Qty: 90 3RF vitamin B complex Tablet 1 tab PO QAM Aimovig Autoinjector 70 mg/mL Auto-Injector 70 mg SUBCUT Q30D Rx Instructions: (due 07/19/21) acetaminophen [Tylenol Extra Strength] 500 mg Tablet 1,000 mg PO Q4H PRN (Reason: Pain) hydrocodone-acetaminophen 5-325 mg tablet 1 tab PO Q6H PRN (Reason: pain) Qty: 14 0RF Discharge Orders: Discharge ED (Routine); Ordered 04/02/23 Ordered By: Hamzah Reddy Referrals: Yvrose Oro MD [Primary Care Provider] - Discharge Diet: Usual diet Discharge Activity: Increase activity as tolerated Patient Instructions: Hypertension (ED), Opioid Safety, Pain Management Activity Restrictions/Additional Instructions: You are seen in the emergency room for hypertension recommend you increase your metoprolol to 75 mg once daily and add amlodipine 5 mg daily follow-up with primary care doctor within the next week to reevaluate your blood pressure and make further adjustments as necessary. Coding Level of Care Code ED Contact Lens Cutter for Jen Manning
[2023-04-02] MEDS: amlodipine 10 mg Tablet PO (15:22)
[2023-04-02] MEDS: labetalol 5 mg/mL SDV 20mL 10 MG IVP (15:23)
[2023-04-02 15:24] VITALS: BP 166/124; PULSE 83; RESP 16; O2SAT 100
[2023-04-02 15:27] LABS: Alanine Aminotransferase 14 U/L (0-33); Alkaline Phosphatase 65 U/L (35-105); Anion Gap 15.7 (5-19); Aspartate Amino Transferase 15 U/L (0-32); Blood Urea Nitrogen 11 mg/dL (6-20); Calcium 9.4 mg/dL (8.5-10.5); Carbon Dioxide 25 mmol/L (22-29); Chloride 103 mmol/L (98-107); Globulin 2.8 g/dL (1.3-4.6); Glomerular Filtration Rate 131.7 mL/min (90-130); Glucose 103 mg/dL (65-115); Osmolality Calculated 290 mOsm/kg (285-295); Potassium 3.7 mmol/L (3.5-5.1); Sodium 140 mmol/L (136-145); Total Bilirubin 0.2 mg/dL (0.15-1.2); Total Protein 6.8 g/dL (6.6-8.7)
[2023-04-02] MEDS: metoprolol tartrate 25 mg Tablet PO (15:40)
[2023-04-02 15:49] LABS: Add Urine Microscopic? NO; Charge for UA Resulting for Rev
[2023-04-02 15:52] LABS: Bilirubin Urine Neg (Negative); Blood Urine Neg (Negative); Glucose Urine UA Norm (Normal); Ketones Urine Negative (Negative); Leukocyte Esterase Urine Negative (Negative); Nitrate Urine Negative (Negative); Protein Urine Neg (Negative); Urine Appearance Cloudy (CLEAR); Urine Color Yellow (Yellow); Urobilinogen Urine Norm (Negative); pH Urine 6.5 (5-7)
[2023-04-02 16:01] LABS: Amphetamines Screen Urine Negative (Negative); Barbiturates Screen Urine Positive (Negative); Benzodiazepines Screen Urine Negative (Negative); Cocaine Screen Urine Negative (Negative); Opiate Screen Urine Negative (Negative); PCP Screen Urine Negative (Negative); THC Screen Urine Positive (Negative)
[2023-04-02 16:03] VITALS: BP 150/95; PULSE 76; RESP 18; O2SAT 99
[2023-04-02 16:04] LABS: Basophils # 0.1 10^3/uL (0.0-0.1); Basophils % 0.6 %; Eosinophils # 0.2 10^3/uL (0.0-0.8); Eosinophils % 2.2 %; Hematocrit 39.5 % (37.0-47.0); Hemoglobin 13.1 g/dL (11.5-15.3); Lymphocytes # 1.7 10^3/uL (0.8-4.8); Lymphocytes % 21.5 %; Mean Corpuscular HGB Conc 33.2 g/dL (30.0-36.0); Mean Corpuscular Hemoglobin 30.1 pg (28.0-34.0); Mean Corpuscular Volume 90.8 fl (81-99); Mean Platelet Volume 10.1 fL (7.4-10.4); Monocytes # 0.5 10^3/uL (0.2-0.9); Monocytes % 6.9 %; Neutrophils # 5.29 10^3/uL (1.8-7.7); Neutrophils % 68.4 %; Nucleated Red Blood Cells % 0 %; Platelet Count 323 10^3/cmm (130-400); Red Blood Count 4.35 10^6/uL (4.1-5.3); Red Cell Distribution Width 12.5 % (12.1-15.1); White Blood Count 7.7 10^3/uL (4.0-10.0)
[2023-04-02] MEDS: acetaminophen 500 mg Tablet 1000 MG PO (16:44)
[2023-04-02 16:46] VITALS: BP 179/97; PULSE 85; RESP 14; O2SAT 99
[2023-04-02 17:03] VITALS: BP 175/95; PULSE 84; O2SAT 94
== END 2023-04-02 17:04 | disposition home or self-care (01) ==
PROVIDERS: Emergency Provider Family Medicine; PCP Family Medicine
DX: I10 Essential (primary) hypertension (principal); I70.1 Atherosclerosis of renal artery; Z87.891 Personal history of nicotine dependence; E78.5 Hyperlipidemia, unspecified
CPT/HCPCS: 71045; 80053; 80306; 81003; 85025; 96374; 99284; J3490

== ENCOUNTER 2023-09-20 15:34 | Outpatient (CLI) | payer MEDICAID, SELFPAY ==
--- NOTE | 2023-09-20 | CT_ITS ---
WS: [id number] CT CHEST, ABDOMEN AND PELVIS WITH CONTRAST HISTORY: LOCALIZED SWELLING; MASS/LUMP OF NECK TECHNIQUE: Contiguous 5 mm axial imaging performed through the chest, abdomen and pelvis with IV cont rast, oral contrast has been provided. Coronal and sagittal reformats chest. Coronal and sagittal ref ormats through the abdomen and pelvis. All CT scans at [facility] use at least one of these d ose optimization techniques: automated exposure control; mA and/or kV adjustment per patient size (in cludes targeted exams where dose is matched to clinical indication); or iterative reconstruction. CONTRAST: Omnipaque 350; 100 mL IV. DLP: 599.40 mGy.cm COMPARISON: 03/29/2023 and 07/14/[address]: Focal subsegmental area of very minimal nodularity and tree-in-bud airspace opacification i n the posterior LEFT lower lobe. Very similar to the prior study. There is an additional groundglass nodule measuring 5 mm in the RIGHT lower lobe. These findings are very nonspecific. There are few jodee ronodules scattered throughout the remaining lungs. No solid mass or pneumonia. Very mild atheroscler osis aorta. No mediastinal or hilar adenopathy. Heart is normal size. No pericardial or pleural effus ions. There is a lobulated soft tissue mass with central coarse calcification over the midline of the lower neck. This mass measures 2.1 transversely by 1.9 anterior posterior and extends over a length of 1.9 cm. There is a coarse central calcification. This mass may be contiguous with the isthmus of the thy roid. Abdomen CT: Numerous very tiny low-attenuation nodules within the liver. These have been previously d escribed and probably represent cysts. These are too small to really characterize. No solid mass. Nor mal portal vein. Prior cholecystectomy. Normal spleen. Normal pancreas and adrenal glands. Normal kid neys. Normal aorta. No ascites or adenopathy. No GI tract obstruction. Normal appendix. Pelvic CT: No free fluid or adenopathy. Prior hysterectomy. No osteoblastic or osteolytic bone lesions are identified. IMPRESSION: 1. Lobulated low-attenuation 1mass with central coarse calcification along the midline of the lower n uriah. May be associated with the isthmus of the thyroid. Mass measures 2.1 x 1.9 x 1.9 cm. Biopsy shou ld be obtained. Neoplasm is not excluded. 2. Very slight tree-in-bud airspace disease LEFT lower lobe and a small groundglass nodule RIGHT lowe r lobe. Probably postinflammatory. No pneumonia. 3. Numerous too small to characterize nodules within the liver. Suspect these are probably small cyst s. These were also present on the study of 07/14/2021. 4. No adenopathy or ascites. 5. Prior hysterectomy.
[2023-09-20] MEDS: iohexol 350 mg/mL 500 mL Btl (per mL) PO (17:38)
[2023-09-20] MEDS: iohexol 350 mg/mL 500 mL Btl (per mL) IV (18:03)
== END 2023-09-20 15:35 | disposition home or self-care (01) ==
LOC: RAD 15:35
PROVIDERS: PCP Family Medicine; Visit Provider Specialist
DX: R22.1 Localized swelling, mass and lump, neck (principal); J98.4 Other disorders of lung; R91.1 Solitary pulmonary nodule
CPT/HCPCS: 71260; 74177; Q9967

== ENCOUNTER 2023-10-05 13:55 | Emergency (ER) | payer MEDICAID, SELFPAY ==
[2023-10-05 14:00] VITALS: BP 208/97; PULSE 88; RESP 18; TEMP 36.7; O2SAT 100; BMI 23.8
[2023-10-05 16:56] VITALS: BP 198/135; PULSE 84; RESP 17; O2SAT 100; O2SAT 99
--- NOTE | 2023-10-05 16:57 | ED_ITS ---
HPI - Headache General: Chief Complaint: Headache Stated Complaint: syncope, headache Time Seen by Provider: 10/05/23 16:36 Source: patient Mode of arrival: ambulatory Limitations: no limitations History of Present Illness: Patient is a 47-year-old female with past medical history of AV heart block, hy pertension, migraines, and GERD who presents to the emergency department complaining of headche and dizziness onset today. Patient states she was getting out of the shower and notes the sudden onset of feeling as if she was going to pass out. She also states she has been dizzy throughout the day, noting that it feels as if the room is spinning and that her vision is going black. She states that she recently had a biopsy for a mass to her anterior neck, in which she is still awaiting results. She also had a thyroid nodule biopsied. She states that she is having new onset ear pain, as well as facial numbness. Otherwise she denies any other complaints, including fever, peripheral numbness or weakness, confusion, or any other symptoms. She also notes that while in the shower, she had a coughing fit in which she coughed up a piece of skin. She also notes an increase in her anxiety. MD elicited complaint: headache Onset description: suddenly Location: generalized Exacerbating factors: movement of head/neck Associated symptoms: Deny chest pain, confusion, fever(s), nausea, rash or vomiting Review of Systems Const: Denies: fever(s) or chills Eyes: Denies: change in vision or blurry vision ENMT: Reports: hoarseness, ear or mastoid pain and change in hearing Card: Denies: chest pain Resp: Denies: dyspnea GI: Denies: abdominal pain, nausea or vomiting : Denies: dysuria, urinary frequency or urinary urgency Musc: Denies: neck pain or back pain Skin/Breast: Denies: rash Neuro: Reports: headache(s) and dizziness; Denies: numbness in extremities, weakness in extremities, sensory changes, lack of coordination, confusion or Slurred speech present Psych: Reports: anxiety PFSH ED PFSH: Medical History 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 COVID-19 long hauler Prolonged loss of taste and smell, fatigue, shortness of breath, among other symptoms COVID-19 vaccine series started 1st Moderna dose 07/03/2021 GERD (gastroesophageal reflux disease) History of peptic ulcer disease History of shingles 3 times HTN (hypertension) Hyperlipidemia Migraine headache Renal artery stenosis Surgical History H/O section x 1 H/O knee surgery Right arthroscopy x 4 H/O shoulder surgery Right biceps tendon tear repair H/O: hysterectomy / Right oophorectomy History of colonoscopy 2019 -- normal History of esophagogastroduodenoscopy (EGD) 2019 -- ulcers S/P cholecystectomy Family History Grandfather Diabetes Grandmother Diabetes Mother Hypoglycemia Other CHF (congestive heart failure) COPD (chronic obstructive pulmonary disease) Hypertension Denies family history of Cancer Social History Smoking and tobacco/nicotine status: former use of tobacco/nicotine Quit status (tobacco/nicotine): has quit using Year quit tobacco: 2019 Former quit date comment: Quit after she was diagnosed with COVID-19 Alcohol intake: never Substance/Drug Use: never Current gender identity: Female Female Reproductive History: Spontaneous abortions: No Physical Exam Const: COMMON NORMALS: no acute distress GENERAL APPEARANCE: cooperative and comfortable ORIENTATION/CONSCIOUSNESS: Yes awake, Yes oriented to person, Yes oriented to place and Yes oriented to time HENMT: COMMON NORMALS: normocephalic, atraumatic, hearing grossly normal b ilaterally, external ears normal, EAC's normal, TM's normal bilaterally and Normal external nose present HEAD & SCALP: normocephalic and atraumatic NOSE: Normal external nose present EXTERNAL EAR: Yes external ears normal EXTERNAL AUDITORY CANAL: EAC's normal TYMPANIC MEMBRANE: TM's normal bilaterally Eye: COMMON NORMALS: Equal, round and reactive pupils present and EOMs intact bilaterally PUPIL: Yes Equal, round and reactive pupils present Neck/C-Spine: COMMON NORMALS: full ROM, no lymphadenopathy, supple and no meningeal signs GENERAL: Yes normal visual inspection OTHER: Midline mass palpated, thyroid nodule palpated at right isthmus upon swallowing Resp: COMMON NORMALS: normal respiratory effort, No retractions, No use of accessory muscles and clear to auscultation bilaterally AUSCULTATION: clear to auscultation bilaterally Cardio: COMMON NORMALS: regular rate, regular rhythm and No murmurs present ( Cardio) RATE: regular rate RHYTHM: regular rhythm GI: COMMON NORMALS: Soft to palpation and No hepatosplenomegaly present AUSCULTATION: Yes normoactive bowel sounds PALPATION: Yes Soft to palpation, No Tenderness to palpation present (GI), No Guarding due to palpation present (GI) and Yes No hepatosplenomegaly present Extremity: COMMON NORMALS: normal to inspection, capillary refill normal, no clubbing, cyanosis or edema, no calf tenderness and no pedal edema Neuro: SENSORIUM/ORIENTATION: Yes oriented to person, Yes oriented to place and Yes oriented to time MENINGEAL SIGNS: Yes no meningeal signs Skin: COMMON NORMALS: no rashes or lesions noted GENERAL SKIN EXAM: no rashes or lesions noted Course Vital Signs: Vital signs: Vital Signs Temperature 98.1 F 10/05/23 14:00 Pulse Rate 92 10/05/23 17:43 Respiratory Rate 17 10/05/23 17:43 Blood Pressure 198/121 10/05/23 17:43 Pulse Oximetry 100 10/05/23 17:43 Oxygen Delivery Me thod Room Air 10/05/23 16:56 MDM - Headache Medical Decision Making Patient became extremely anxious and wanted to leave. We encouraged her to stay to allow us to finish work-up and get her blood pressure under better control she declined. Discharge instructions given recommend she follow-up with her primary care doctor in the next 1 to 2 days. Lab Data 10/05/23 17:23 10/05/23 17:23 Laboratory Results WBC 5.91 10^3/uL (3.29-11.43) 10/05/23 17: RBC 4.66 10^6/uL (3.85-5.65) 10/05/23 17: Hgb 13.90 g/dL (11.27-16.99) 10/05/23 17: Hct 41.0 % (36-47) 10/05/23 17: MCV 88.0 fl (85-98) 10/05/23 17: MCH 29.8 pg (27-33) 10/05/23 17: MCHC 33.9 g/dL (30-55) 10/05/23 17: RDW 12.2 % (12.1-15.1) 10/05/23: Plt Count 354 10^3/cmm (157-399) 10/05/23 17: MPV 10.1 fL (7.4-10.4) 10/05/23 17: Neut % (Auto) 59.2 % 10/05/23: Lymph % (Auto) 29.8 % 10/05/23 17: [place] % (Auto) 8.1 % 10/05/23 17: Eos % (Auto) 1.9 % 10/05/23: Baso % (Auto) 0.8 % 10/05/23: Neut # (Auto) 3.50 10^3/uL (1.8-7.7) 10/05/23: Lymph # (Auto) 1.8 10^3/uL (0.8-4.8) 10/05/23: [place] # (Auto) 0.5 10^3/uL (0.2-0.9) 10/05/23: Eos # (Auto) 0.1 10^3/uL (0.0-0.8) 10/05/23: Baso # (Auto) 0.1 10^3/uL (0.0-0.1) 10/05/23: Nucleated RBC % (auto) 0 % 10/05/23: Nucleated RBCs # 0.0 /100WBC 10/05/23 17: Sodium 139 mmol/L (136-145) 10/05/23 17: Potassium 3.7 mmol/L (3.5-5.1) 10/05/23: Chloride 104 mmol/L (98-107) 10/05/23: Carbon Dioxide 23 mmol/L (22-29) 10/05/23 17: Anion Gap 15.7 (5-19) 10/05/23 17: BUN 11 mg/dL (6-20) 10/05/23 17: Creatinine 0.6 mg/dL (0.5-0.9) 10/05/23 17: GFR Calculation 106.7 mL/min (90-130) 10/05/23 17:23 Glucose 87 mg/dL (65-115) 10/05/23 17:23 Calculated Osmolality 287 mOsm/kg (285-295) 10/05/23 17: Calcium 9.7 mg/dL (8.5-10.5) 10/05/23 17:23 Total Bilirubin 0.4 mg/dL (0.15-1.2) 10/05/23 17: AST 14 U/L (0-32) 10/05/23 17: ALT 11 U/L (0-33) 10/05/23 17: Alkaline Phosphatase 64 U/L (35-105) 10/05/23 17: Total Protein 7.2 g/dL (6.6-8.7) 10/05/23 17: Albumin 4.5 g/dL (3.5-5.2) 10/05/23 17: Globulin 2.7 g/dL (1.3-4.6) 10/05/23 17: No radiology studies performed this visit Discharge Plan Discharge Patient Disposition: Home Clinical Impression: Headache, HTN (hypertension), Renal artery stenosis Condition: Stable Prescriptions: No Action cholecalciferol (vitamin D3) 125 mcg (5,000 unit) tablet 125 mcg PO QAM lisinopril 10 mg tablet 10 mg PO DAILY Rx Instructions: Can increase to 40 mg a day/ depending on BP sucralfate [Carafate] 1 gram tablet 1 g PO Q6H sumatriptan succinate 100 mg tablet See Rx Instructions PO .COMPLEX Rx Instructions: take 1 tab at onset of headache; if no relief, may repeat 1 tab after at least 2 hrs; max = 2 tabs/24 hrs PO [id number] [Fioricet] 50-300-40 mg capsule 1 cap PO Q8H PRN prednisone 10 mg tablet 30 mg PO DAILY 5 Days Qty: 15 0RF azithromycin 250 mg tablet See Rx Instructions PO .COMPLEX Qty: 6 0RF Rx Instructions: For 250 mg dose pack: take 500 mg today (day 1), then 250 mg for 4 days (days 2-5) PO fluticasone propionate [Flonase Allergy Relief] 50 mcg/actuation spray,suspension 2 spray intranasal DAILY Qty: 16 0RF Rx Instructions: administer into each nostril pantoprazole 40 mg tablet,delayed release (DR/EC) See Rx Instructions .ROUTE .COMPLEX Qty: 90 11RF Dose Instruction: TAKE 1 TABLET BY MOUTH EVERY DAY FOR STOMACH Rx Instructions: TAKE 1 TABLET BY MOUTH EVERY DAY FOR STOMACH spironolactone 50 mg tablet See Rx Instructions .ROUTE .COMPLEX Qty: 30 11RF Dose Instruction: TAKE 1 TABLET BY MOUTH EVERY DAY Rx Instructions: TAKE 1 TABLET BY MOUTH EVERY DAY doxepin 25 mg capsule See Rx Instructions .ROUTE .COMPLEX Qty: 60 0RF Dose Instruction: TAKE 1-2 CAPSULES BY MOUTH EVERY NIGHT Rx Instructions: TAKE 1-2 CAPSULES BY MOUTH EVERY NIGHT vitamin B complex Tablet 1 tab PO QAM Aimovig Autoinjector 70 mg/mL Auto-Injector 70 mg SUBCUT Q30D Rx Instructions: (due 07/19/21) acetaminophen [Tylenol Extra Strength] 500 mg Tablet 1,000 mg PO Q4H PRN (Reason: Pain) amlodipine 5 mg tablet 5 mg PO DAILY Qty: 30 0RF metoprolol succinate 50 mg tablet extended release 24 hr 75 mg PO DAILY Qty: 45 0RF hydrocodone-acetaminophen 5-325 mg tablet 1 tab PO Q6H PRN (Reason: pain) Qty: 14 0RF Discharge Orders: Discharge ED (Routine); Ordered 10/05/23 Ordered By: Hamzah Reddy Referrals: Melanie Hopper [Primary Care Provider] - Discharge Diet: Usual diet Discharge Activity: Resume usual activity Patient Instructions: Opioid Safety, Pain Management Activity Restrictions/Additional Instructions: Thank you for choosing [facility] for your healthcare needs today. Please realize this is an emergency room and that we are providing you with a medical screening exam and this may not be complete and all inclusive of all the testing and or work up that you may need to determine your ailment or severity of your illness. It is very important that you follow up as instructed or that you return to the Emergency Department should you have concerns or if your condition changes or worsens in any way. You are seen in the emergency room today for elevated blood pressure and headache. You elected to leave before all of the work-up was completed if you change your mind you can return at any time otherwise [facility] and follow-up with your primary care doctor Coding Level of Care Code ED Adult Neuropsychologist for Jen Manning
[2023-10-05 17:03] VITALS: BP 189/128; PULSE 85; RESP 16; O2SAT 100
--- NOTE | 2023-10-05 17:12 | ECG_ITS ---
[facility] Test Date: 2023-10-05 Pat Name: Olivia Adams Department: Room: Gender: Female Banana Expert: : 1975 Requested By: Hamzah Stevenson Order Number: [id number] Maria Isabel MD: Babatunde River M.D. Measurements Intervals [place] Rate: 73 P: 48 NE: 178 QRS: 0 QRSD: 92 T: 55 QT: 379 QTc: 420 Interpretive Statements SINUS RHYTHM Compared to ECG 03/29/2023 21:41:47 Intraventricular conduction delay no longer present Electronically Signed On 10-05-2023 23:19:59 CHIEF [employer] RESOURCES OFFICER by Babatunde River M.D. [id number]
--- NOTE | 2023-10-05 17:42 | PC.NURSE ---
RN AT BEDSIDE TO PLACE IV AND GIVE MEDICATIONS. PATIENT REPORTED THAT SHE DOES NOT WANT TO HAVE IV, MEDICATIONS AND WOULD LIKE TO GO HOME. DECLINING CARE. DR. DARDEN INFORMED.
[2023-10-05 17:43] VITALS: BP 198/121; PULSE 92; RESP 17; O2SAT 100
[2023-10-05 17:44] LABS: Basophils # 0.1 10^3/uL (0.0-0.1); Basophils % 0.8 %; Eosinophils # 0.1 10^3/uL (0.0-0.8); Eosinophils % 1.9 %; Lymphocytes # 1.8 10^3/uL (0.8-4.8); Lymphocytes % 29.8 %; Mean Corpuscular HGB Conc 33.9 g/dL (30-55); Mean Corpuscular Hemoglobin 29.8 pg (27-33); Mean Platelet Volume 10.1 fL (7.4-10.4); Monocytes # 0.5 10^3/uL (0.2-0.9); Monocytes % 8.1 %; Neutrophils % 59.2 %; Nucleated Red Blood Cells % 0 %; Platelet Count 354 10^3/cmm (157-399); Red Blood Count 4.66 10^6/uL (3.85-5.65); Red Cell Distribution Width 12.2 % (12.1-15.1); White Blood Count 5.91 10^3/uL (3.29-11.43)
[2023-10-05 18:26] LABS: Alanine Aminotransferase 11 U/L (0-33); Albumin Level 4.5 g/dL (3.5-5.2); Alkaline Phosphatase 64 U/L (35-105); Anion Gap 15.7 (5-19); Aspartate Amino Transferase 14 U/L (0-32); Blood Urea Nitrogen 11 mg/dL (6-20); Calcium 9.7 mg/dL (8.5-10.5); Carbon Dioxide 23 mmol/L (22-29); Chloride 104 mmol/L (98-107); Globulin 2.7 g/dL (1.3-4.6); Glomerular Filtration Rate 106.7 mL/min (90-130); Glucose 87 mg/dL (65-115); Osmolality Calculated 287 mOsm/kg (285-295); Potassium 3.7 mmol/L (3.5-5.1); Sodium 139 mmol/L (136-145); Total Bilirubin 0.4 mg/dL (0.15-1.2); Total Protein 7.2 g/dL (6.6-8.7)
== END 2023-10-05 17:54 | disposition home or self-care (01) ==
PROVIDERS: Emergency Provider Family Medicine; PCP Nurse Practitioner Family
DX: R51.9 Headache, unspecified (principal); I10 Essential (primary) hypertension; I70.1 Atherosclerosis of renal artery; Z87.891 Personal history of nicotine dependence; E78.5 Hyperlipidemia, unspecified
CPT/HCPCS: 36415; 80053; 85025; 93005; 99284